=== PATIENT | female | born 1965 | race Caucasian/White ===

== ENCOUNTER → 2020-12-27 16:38 | Outpatient (CLI) | payer OTHER, SELFPAY ==
[2020-12-27 17:19] LABS: Basophils # 0.1 K/mm3 (0-0.2); Basophils % 1.7 % (0.1-2.0); Eosinophils # 0.3 K/mm3 (0.0-0.4); Eosinophils % 3.9 % (0.1-12.0); Hematocrit 43.7 % (37.0-47.0); Hemoglobin 14.4 g/dL (12.2-16.2); Lymphocytes # 2.3 K/mm3 (0.7-4.5); Lymphocytes % 36.2 % (10-50); Mean Corpuscular HGB Conc 32.9 g/dL (31.8-35.4); Mean Corpuscular Hemoglobin 28.2 pg (27.0-31.2); Mean Corpuscular Volume 85.7 fl (81-99); Mean Platelet Volume 7.8 fl (7.4-10.4); Monocytes # 0.4 K/mm3 (0.1-1.0); Monocytes % 6.6 % (1.7-9.3); Neutrophils # 3.3 K/mm3 (1.8-7.8); Neutrophils % 51.6 % (37.0-80.0); Platelet Count 409 K/mm3 (142-424); Red Blood Count 5.11 M/mm3 (4.20-5.40); Red Cell Distribution Width 13.8 % (11.5-17.5); White Blood Count 6.4 K/mm3 (4.8-10.8)
[2020-12-27 17:57] LABS: Alanine Aminotransferase 28 U/L (12-78); Albumin Level 4.2 g/dl (3.5-5.0); Albumin/Globulin Ratio 1.5 (1.1-1.8); Alkaline Phosphatase 63 U/L (38-126); Anion Gap 11.1 mEq/L (5-15); Aspartate Amino Transferase 24 U/L (14-36); Bilirubin,Total 0.2 mg/dl (0.2-1.3); Blood Urea Nitrogen 14 mg/dl (7-17); Carbon Dioxide 29 mmol/L (22.0-30.0); Chloride 105 mmol/L (98-107); Chol/HDL Ratio 5.7 (1-3.5); Cholesterol 224 mg/dl (140-200); Estimated Glomerular Filt Rate 87 ml/min (>60); GFR (African American) 105 ML/MIN (>60); Globulin 2.8 g/dL (1.3-3.2); Glucose 101 mg/dl (74-100); HDL Cholesterol 39 mg/dl (40-60); Potassium 4.1 mmoL/L (3.5-5.1); Sodium 141 mmol/L (136-145); Triglycerides 219 mg/dl (30-150); VLDL Cholesterol 44 mg/dL (0-40)
[2020-12-27 18:08] LABS: Direct LDL Cholesterol 156.86 mg/dL (100-129)
[2020-12-27 18:13] LABS: 25-OH Vitamin D, Total 31.4 ng/mL (30-100)
[2020-12-27 18:14] LABS: T4 (Thyroxine) 8.6 ug/dl (5.53-11.0)
[2020-12-27 18:27] LABS: Hemoglobin A1C 6.1 % (4.0-6.0)
[2020-12-27 18:28] LABS: Thyroid Stimulating Hormone 1.12 uIU/mL (0.465-4.68)
== END ==
PROVIDERS: Visit Provider Nurse Practitioner Family
DX: R53.83 Other fatigue (principal); I10 Essential (primary) hypertension; E66.3 Overweight; Z68.31 Body mass index [BMI] 31.0-31.9, adult; R73.03 Prediabetes
CPT/HCPCS: 36415; 80053; 80061; 82306; 83036; 84436; 84443; 85025

== ENCOUNTER 2021-01-15 23:44 | Emergency (ER) | payer OTHER, SELFPAY ==
--- NOTE | 2021-01-15 00:01 | CT_ITS ---
PROCEDURE INFORMATION: Exam: CT Abdomen And Pelvis With Contrast Exam date and time: 01/15/2021 12:01 AM Age: 55 years old Clinical indication: Abdominal pain; Prior surgery TECHNIQUE: Imaging protocol: Computed tomography of the abdomen and pelvis with contrast. Radiation optimization: All CT scans at this facility use at least one of these dose optimization techniques: automated exposure control; mA and/or kV adjustment per patient size (includes targeted exams where dose is matched to clinical indication); or iterative reconstruction. Contrast material: ISOVUE; Contrast volume: 75 ml; Contrast route: IV; COMPARISON: No relevant prior studies available. FINDINGS: Lungs: The lung bases are clear. Liver: 2.6 x 2.3 cm hypodense mass in the left lobe of the liver likely represents a cyst. Gallbladder and bile ducts: The gallbladder has been removed. Pancreas: Normal. No ductal dilation. Spleen: Normal. No splenomegaly. Adrenal glands: Normal. No mass. Kidneys and ureters: Normal. No hydronephrosis. Stomach and bowel: Unremarkable. No obstruction. No mucosal thickening. Appendix: No evidence of appendicitis. Intraperitoneal space: Mesenteric fat containing anterior abdominal wall defect measures approximately 6.5 x 4.0 cm. Vasculature: Abdominal aorta and iliac arteries contain scattered calcified plaque. No abdominal aortic aneurysm. Lymph nodes: Unremarkable. No enlarged lymph nodes. Urinary bladder: Unremarkable as visualized. Reproductive: Fibroid uterus. Bones/joints: [id number] multilevel degenerative changes of the spine most pronounced at L2-L3 and L4-L5. L4-L5 vertebral bodies are fused. Soft tissues: Unremarkable. IMPRESSION: 1. 6.5 x 4.0 cm anterior abdominal wall defect with mesenteric fat herniating through it. 2. Status post cholecystectomy. 3. Degenerative changes of the lumbar spine. 4. Fibroid uterus.
[2021-01-15 23:45] VITALS: BP 188/101; PULSE 69; RESP 16; TEMP 36.4; O2SAT 98; BMI 31.3
[2021-01-16 00:01] VITALS: BP 142/80; PULSE 82; O2SAT 96
[2021-01-16 00:27] LABS: Basophils # 0.1 K/mm3 (0-0.2); Basophils % 0.8 % (0.1-2.0); Eosinophils # 0.3 K/mm3 (0.0-0.4); Eosinophils % 3.8 % (0.1-12.0); Hematocrit 42.5 % (37.0-47.0); Hemoglobin 14.2 g/dL (12.2-16.2); Lymphocytes # 2.8 K/mm3 (0.7-4.5); Mean Corpuscular HGB Conc 33.4 g/dL (31.8-35.4); Mean Platelet Volume 7.4 fl (7.4-10.4); Monocytes # 0.5 K/mm3 (0.1-1.0); Monocytes % 7.1 % (1.7-9.3); Neutrophils # 3.5 K/mm3 (1.8-7.8); Neutrophils % 49.4 % (37.0-80.0); Platelet Count 367 K/mm3 (142-424); Red Blood Count 5.06 M/mm3 (4.20-5.40); White Blood Count 7.1 K/mm3 (4.8-10.8)
--- NOTE | 2021-01-16 00:29 | HMH.EDGENADL ---
ED Disposition Clinical Impression: Ventral hernia without obstruction or gangrene Disposition: Home, Self-Care Condition on Discharge: Fair Instructions: DI for Ventral Hernia, Ventral Hernia Additional Instructions: You have been evaluated for abdominal pain. Diagnosed with a ventral hernia. The hernia is quite large at 6 x 4 cm. It is very important that you follow-up with a general surgeon for elective repair. Hernias can become dangerous or even deadly if the bowels herniating through the defect and are unable to be reduced. Please call Dr. Andrew or Mau for next available appointment and follow-up. Return to the emergency department at once if you develop any new or worsening abdominal pain, nausea, vomiting, changes in bowel habits. Referrals: Barrington Elliott APRN [Primary Care Provider] - Trevor Andrew MD [Staff Physician] - Yobani León MD [Staff Physician] - Time of Disposition: 03:41 - Critical Care Critical Care Time: No Attestation: On 01/15/21, the high probability of a clinically significant, sudden or life threatening deterioration of the following system(s) required my full and direct attention, intervention and personal management. The time I documented below is in addition to time spent performing reported procedures but includes the following listed in this critical care notation. Medical Decision Making - Medical Records Medical records reviewed: Yes: I reviewed the patient's medical records. - Terry Inquiry Pt receiving controlled substance: No Vital Signs: 01/15/21 23:45 01/16/21 00:01 01/16/21 00:31 Temperature 97.5 F L Temperature Source Oral Pulse Rate 82 75 Pulse Rate [Left] 69 Respiratory Rate 16 Blood Pressure 142/80 H 138/99 H Blood Pressure [Right Arm] 188/101 H Blood Pressure Mean [Right Arm] 130 02 Sat by Pulse Oximetry 98 96 92 L Oxygen Delivery Method Room Air Room Air Room Air 01/16/21 01:01 01/16/21 01:31 01/16/21 02:01 Temperature Temperature Source Pulse Rate 70 69 72 Pulse Rate [Left] Respiratory Rate Blood Pressure 138/74 131/73 110/60 Blood Pressure [Right Arm] Blood Pressure Mean [Right Arm] 02 Sat by Pulse Oximetry 98 96 93 L Oxygen Delivery Method Room Air Room Air Room Air - Lab Data Lab Results 01/16/21 00:13: WBC 7.1, RBC 5.06, Hgb 14.2, Hct 42.5, MCV 84.0, MCH 28.0, MCHC 33.4, RDW 14.0, Plt Count 367, MPV 7.4, Neut % (Auto) 49.4, Lymph % (Auto) 39.0, O'Brien % (Auto) 7.1, Eos % (Auto) 3.8, Baso % (Auto) 0.8, Neut # (Auto) 3.5, Lymph # (Auto) 2.8, O'Brien # (Auto) 0.5, Eos # (Auto) 0.3, Baso # (Auto) 0.1 01/16/21 00:13: Sodium 135 L, Potassium 4.0, Chloride 102, Carbon Dioxide 30, Anion Gap 7.0, BUN 17, Creatinine 0.80, Estimated Creat Clear 121, Estimated GFR 74, Est GFR ( Amer) 90, Glucose 107 H, Calcium 9.3, Total Bilirubin 0.3, AST 32, ALT 38, Alkaline Phosphatase 70, Total Protein 7.3, Albumin 4.3, Globulin 3.0, Albumin/Globulin Ratio 1.4, Lipase 183 01/16/21 02:50: Lactate 1.0 Result diagrams: 01/16/21 00:13 01/16/21 00:13 Orders (Tests/Meds): ED MEDICATIONS Generic Name Dose Route Start Last Admin Trade Name Freq PRN Reason Stop Dose Admin Benzonatate 100 mg 01/16/21 02:30 01/16/21 03:19 Benzonatate 100mg Capsule PO 02/15/21 02:29 100 mg ONCE NAREN Administration Sodium Chloride 1,000 mls @ 999 mls/hr 01/16/21 00:15 01/16/21 03:33 Sod Chlor 0.9% 1000ml Bag IV 01/16/21 01:15 Not Given .Q1H1M NAREN Discontinued Medications Generic Name Dose Route Start Last Admin Trade Name Freq PRN Reason Stop Dose Admin Hydromorphone HCl 0.5 mg 01/16/21 00:04 01/16/21 03:33 Hydromorphone 2mg/Ml Syringe IV 01/16/21 00:05 Not Given ONCE ONE Iopamidol 75 ml 01/16/21 01:03 01/16/21 01:05 Iopamidol-370 (76%);100ml Bottle IV 01/16/21 01:04 75 ml ONCE ONE Administration Ondansetron HCl 4 mg 01/16/21 00:04 01/16/21 03:33 Ondansetron 4mg/2ml Vial IV
[2021-01-16 00:31] VITALS: BP 138/99; PULSE 75; O2SAT 92
[2021-01-16 00:37] LABS: Alanine Aminotransferase 38 U/L (12-78); Albumin Level 4.3 g/dl (3.5-5.0); Albumin/Globulin Ratio 1.4 (1.1-1.8); Alkaline Phosphatase 70 U/L (38-126); Aspartate Amino Transferase 32 U/L (14-36); Bilirubin,Total 0.3 mg/dl (0.2-1.3); Blood Urea Nitrogen 17 mg/dl (7-17); Calcium 9.3 mg/dl (8.4-10.2); Carbon Dioxide 30 mmol/L (22.0-30.0); Chloride 102 mmol/L (98-107); Creatinine Clearance Estimated 121 mL/min (50-200); Estimated Glomerular Filt Rate 74 ml/min (>60); GFR (African American) 90 ML/MIN (>60); Glucose 107 mg/dl (74-100); Lipase 183 U/L (23-300); Sodium 135 mmol/L (136-145); Total Protein,Serum 7.3 g/dl (6.3-8.2)
[2021-01-16 01:01] VITALS: BP 138/74; PULSE 70; O2SAT 98
[2021-01-16 01:31] VITALS: BP 131/73; PULSE 69; O2SAT 96
[2021-01-16 02:01] VITALS: BP 110/60; PULSE 72; O2SAT 93
[2021-01-16 03:48] VITALS: BP 110/57; PULSE 74; RESP 20; TEMP 36.8; O2SAT 99
== END 2021-01-16 03:51 | disposition home or self-care (01) ==
PROVIDERS: Emergency Provider Emergency Medicine; PCP Nurse Practitioner Family
DX: K43.9 Ventral hernia without obstruction or gangrene (principal); F41.8 Other specified anxiety disorders; E10.9 Type 1 diabetes mellitus without complications
CPT/HCPCS: 74177; 80053; 83605; 83690; 85025; 99283; J2405; Q9967

== ENCOUNTER → 2021-01-27 12:18 | Outpatient (CLI) | payer OTHER, SELFPAY ==
[2021-01-27 12:53] LABS: Basophils # 0.1 K/mm3 (0-0.2); Basophils % 0.7 % (0.1-2.0); Eosinophils # 0.3 K/mm3 (0.0-0.4); Eosinophils % 3.5 % (0.1-12.0); Hemoglobin 14.8 g/dL (12.2-16.2); Lymphocytes # 2.3 K/mm3 (0.7-4.5); Lymphocytes % 30.3 % (10-50); Mean Corpuscular HGB Conc 33.8 g/dL (31.8-35.4); Mean Corpuscular Hemoglobin 28.1 pg (27.0-31.2); Mean Corpuscular Volume 83.3 fl (81-99); Mean Platelet Volume 7.9 fl (7.4-10.4); Monocytes # 0.4 K/mm3 (0.1-1.0); Monocytes % 5.6 % (1.7-9.3); Neutrophils # 4.5 K/mm3 (1.8-7.8); Neutrophils % 59.9 % (37.0-80.0); Platelet Count 405 K/mm3 (142-424); Red Blood Count 5.28 M/mm3 (4.20-5.40); Red Cell Distribution Width 13.8 % (11.5-17.5); White Blood Count 7.6 K/mm3 (4.8-10.8)
[2021-01-27 14:34] LABS: Anion Gap 11.6 mEq/L (5-15); Blood Urea Nitrogen 15 mg/dl (7-17); Calcium 9.9 mg/dl (8.4-10.2); Carbon Dioxide 30 mmol/L (22.0-30.0); Chloride 99 mmol/L (98-107); Estimated Glomerular Filt Rate 87 ml/min (>60); GFR (African American) 105 ML/MIN (>60); Glucose 100 mg/dl (74-100); Potassium 4.6 mmoL/L (3.5-5.1); Sodium 136 mmol/L (136-145)
== END ==
PROVIDERS: Visit Provider Surgery
DX: Z01.812 Encounter for preprocedural laboratory examination (principal); Z11.52 Encounter for screening for COVID-19; K43.9 Ventral hernia without obstruction or gangrene
CPT/HCPCS: 36415; 80048; 85025; C9803; U0003; U0005

== ENCOUNTER 2021-01-30 06:00 | Day surgery (SDC) | payer OTHER, SELFPAY ==
[2021-01-25 14:12] VITALS: BMI 31.0
[2021-01-30] VITALS (10 sets, daily range): BP systolic 129–171; BP diastolic 80–94; PULSE 68–91; RESP 16–22; TEMP 36.4–43; O2SAT 95–99
--- NOTE | 2021-01-30 08:42 | HMH.ANESCL ---
[facility] Anesthesia Checklist - Patient Identification Patient Identification: Arm Band - Structural Data Admitted From: Home Planned Operative Procedure/s: Laparoscopic Ventral Hernia Repair Consent for Planned Operative Procedure(s) Verified: Yes Verified Documents: Surgical Consent, History and Physical - NPO Status Verified Time NPO: 00:00 - Additional verifications Anesthesia Reactions: No Hx Blood Transfusions: Yes Blood Transfusion Reaction: No - Airway Assessment C-Spine Mobility Assessed: Yes (mp2) TMJ Mobility Assessed: Yes Dentition: Good Dentition - Neurological Assessment Level of Consciousness: Awake, Alert - Anesthesia Plan Anesthesia Risk discussed: Yes Anesthesia Plan: Verified ASA Class: II Anesthesia Type: General [facility] History I have reviewed the patient's past medical history: Yes Medical History: Reports:: Anxiety, Depression, Diabetes Mellitus Type 2 (pt states prediabetic ), Hyperlipidemia, Hypertension Denies:: Cancer, Diabetes Mellitus Type 1, MRSA, Seizures *Have you ever received a pneumonia vaccine?: No *Have you received a flu vaccine this season?: No Other Medical History: Denies: Blood Transfusion Reaction Anesthesia experience/problems:: nac Laterality Cases: Bilateral: Other Other Surgeries: Yes: Cholecystectomy, , Other Amputation: No Fractures: No - *Social History Last grade of school completed: Advanced degree Smoking Status: Current every day smoker Tobacco Type: cigarettes # Packs/Day (cigarettes): 1 Alcohol Intake: never Alcohol Intake Frequency:: a few times a month Substance Use Type: denies use *Occupational Status:: employed Housing: house Household Members: spouse *Travel in the last 8 weeks: None - Psychiatric History Pschychiatric History:: Reports:: Anxiety, Depression Family Hx:: Diabetes
--- NOTE | 2021-01-30 09:30 | HMH.OPNOTE ---
Date of procedure: 01/30/21 Pre-op Diagnosis:: Ventral hernia Post-op Diagnosis:: Same Procedure performed:: Laparoscopic ventral hernia repair with placement of 15.2 cm circular [employer] mesh Surgeon:: Trevor Andrew MD TECHNICIAN ANATOMIC PATHOLOGY:: [place] Anesthesia: GETA Estimated blood loss (mL): 10 Clinical Note:: Patient is a 55-year-old female who was referred by the emergency department for ventral hernia. She states that she has had a hernia for the past 5 years ever since she underwent laparoscopic cholecystectomy at [facility]. She had noted some swelling. She had significant exacerbation of pain from the hernia and was seen in the emergency department on 01/16/2021. She had a CT scan performed which reveals a 6.5 x 4 cm ventral hernia at her umbilicus containing fat. Her symptoms were able to be easily controlled. Recommendations were for outpatient surgical consultation. 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 Operative findings:: She had 2 adjacent hernias at her umbilical area which seem to connect above fascial bridge. Operative note:: Consent was obtained. Patient was taken to the operating room. She was positioned in a supine position. General anesthesia was induced. Abdomen was prepped and draped in the standard surgical fashion. Through a 5 mm left subcostal incision optical trocar was inserted. Intraperitoneal contents were visualized as CO2 pneumoperitoneum was achieved. There was evidence of herniated omentum near the umbilical area. Ultimately a 5 mm trocar was inserted in the left lower abdomen and 12 mm trocar was inserted in the right subcostal area. Eventually a 5 mm trocar was inserted in the right lower abdomen to allow for placement and securing the mesh. Peritoneal attachments were incised with a's ultrasonic robotic antoinette. With traction the herniated fat was able to be delivered from the first hernia defect. Additional dissection was carried out and appreciable amount of herniated fat was delivered from the adjacent hernia. Hernia sac appeared to communicate between the 2 fascial defects. The boundaries of the fascial defects were marked on the abdomen. It was determined that this would best be served with placement of a 15.2 cm circular [employer] mesh. This was brought onto the field. It was rolled and inserted into the peritoneal cavity. Through a 1 mm incision centrally over the hernias the balloon positioning system insufflation tubing was brought through the anterior abdominal wall. Balloon was then inflated. Mesh was positioned with good overlap of the fascial edges. Mesh was secured around its periphery with the OPTi fix. The balloon positioning system balloon was then removed. A few more central OPTi fix anchors were deployed more medially to help eliminate space above the mesh. Repair appeared adequate. There was good hemostasis. Fascia at the 12 mm right upper quadrant trocar was closed with the Endo Close device. Trochars were removed and CO2 pneumoperitoneum was evacuated. Local anesthetic was infiltrated into the trocar sites. Skin incisions were closed with 4-0 Monocryl in subcuticular fashion. Steri-Strips and dressings were applied. Condition: stable Disposition: PACU Complications:: None immediately apparent
--- NOTE | 2021-01-30 09:50 | HMH.ANESI ---
[facility] Anesthesia Record Part I Intake, IV Amount: 1,200 Estimated blood loss (mL): 10 Urine output (mL): 0 Blood Pressure: 167/91 SaO2: 95 Pulse Rate: 91 Respiratory Rate: 16 Temperature: 99.4 F Patient is:: Drowsy, Stable Stable to PACU at:: 09:40
[2021-01-30 09:55] LABS: POC Glucose,Bedside 111 (70-110)
--- NOTE | 2021-01-30 14:49 | HMH.ANESII ---
[facility] Anesthesia Record Part II Discharge Time: 10:10 Destination: Surgical Day Care (OP Surgery) PACU nurse assessment reviewed?: Yes Patient Condition:: Good Anesthesia Complications:: None Swallowing reflex intact?: Yes Cyanosis?: No Blood Pressure: 151/87 Pulse Rate: 68 Temperature: 97.6 F Mental Status: Alert & Oriented Pain level:: 0 Nausea and/or vomitting:: None Intake, IV Amount: 0
[2021-11-08 10:55] LABS: POC Glucose,Bedside 98 (70-110)
== END 2021-01-30 10:42 | disposition home or self-care (01) ==
LOC: OR 06:03
PROVIDERS: PCP Nurse Practitioner Family; Visit Provider Surgery
PROC: 0WQF4ZZ Repair Abdominal Wall, Percutaneous Endoscopic Approach (ICD-10-PCS; CPT 49652; principal; 2021-01-30 08:15)
DX: K43.9 Ventral hernia without obstruction or gangrene (principal); E78.5 Hyperlipidemia, unspecified; I10 Essential (primary) hypertension; F41.9 Anxiety disorder, unspecified; F32.A Depression, unspecified; Z90.49 Acquired absence of other specified parts of digestive tract; Z72.0 Tobacco use; Z83.3 Family history of diabetes mellitus; Z79.899 Other long term (current) drug therapy; Z79.890 Hormone replacement therapy
CPT/HCPCS: 49652; 82962; 96374; C1781; J2405; J2710

== ENCOUNTER → 2021-02-22 12:31 | Outpatient (CLI) | payer OTHER, SELFPAY ==
[2021-02-22 14:24] LABS: Blood Urea Nitrogen 13 mg/dl (7-17); Estimated Glomerular Filt Rate 87 ml/min (>60); GFR (African American) 105 ML/MIN (>60)
== END ==
PROVIDERS: PCP Emergency Medicine; Visit Provider Surgery
DX: Z01.812 Encounter for preprocedural laboratory examination (principal)
CPT/HCPCS: 36415; 82565; 84520

== ENCOUNTER → 2021-02-26 07:50 | Outpatient (CLI) | payer OTHER, SELFPAY ==
--- NOTE | 2021-02-26 07:50 | CT_ITS ---
FINAL REPORT CLINICAL HISTORY: seroma vs hernia recent hernia surgery. feels like hernia back post surgery. pain COMPARISON: January 16, 2021 FINDINGS: CT OF THE ABDOMEN AND PELVIS WITH CONTRAST Axial CT images of the abdomen and pelvis were obtained after the administration of oral and iv contrast. Coronal reformatted images were also obtained and reviewed.This study was performed with techniques to keep radiation doses as low as reasonably achievable (ALARA). Individualized dose reduction techniques using automated exposure control or adjustment of mA and/or kV according to the patient's size were employed. Abdomen: There is mild atelectasis or scarring in the medial right lung base. The heart is normal in size. There is a 20 mm cyst in the left hepatic lobe stable from the prior exam. There is evidence of cholecystectomy. There is mild extrahepatic biliary ductal dilatation likely representing post cholecystectomy change. The spleen is unremarkable. No adrenal mass is present. The pancreas has an unremarkable appearance. The kidneys are normal, without evidence of mass or hydronephrosis. The aorta is normal in caliber. There is no free fluid or adenopathy. There is a lobular fluid collection in the anterior abdominal wall at the site of the previous hernia measuring 12 x 6 cm in maximal axial dimensions. This has an appearance consistent with a postoperative seroma or chronic hematoma. Pelvis: The appendix is normal. The urinary bladder is unremarkable. No inflammatory process is seen. There is no evidence of mass or adenopathy. There is no evidence of bowel obstruction. The uterus is lobular, heterogeneous and contains calcifications consistent with fibroids. IMPRESSION: Postoperative seroma or chronic hematoma at the site of the prior hernia. Fibroid uterus. Stable cyst in the left hepatic lobe of the liver. Reviewed, Interpreted and Dictated by Trevor Stephenson III, MD Transcribed by Leroy Khoury Authenticated by Trevor Stephenson III, MD on 02/26/2021 08:41:28 AM [facility]
== END ==
LOC: RAD 07:50
PROVIDERS: PCP Nurse Practitioner Family; Visit Provider Surgery
DX: K43.9 Ventral hernia without obstruction or gangrene (principal)
CPT/HCPCS: 74177; Q9967

== ENCOUNTER 2021-04-19 18:42 | Emergency (ER) | payer OTHER, SELFPAY ==
[2021-04-19 18:45] VITALS: BP 151/96; PULSE 81; RESP 18; TEMP 36.9; O2SAT 98; BMI 30.4
--- NOTE | 2021-04-19 19:09 | HMH.EDUTC ---
[facility] Disposition Clinical Impression: Bronchitis Sinusitis Qualifiers: Sinusitis location: unspecified location Chronicity: unspecified Qualified Code(s): J32.9 - Chronic sinusitis, unspecified Disposition: Home, Self-Care Condition on Discharge: Good Instructions: Sinusitis, DI for Sinusitis Additional Instructions: ? Start antibiotic today. Be sure to complete entire prescription even if feeling better ? Monitor temp. Tylenol every 4 hours as needed and / or ibuprofen every 6 hours as needed ( As long as your primary care physician has told you that it ok to take both. For fever/aches/pains ER if no less than 101 despite Tylenol or Motrin ? Humidifier/vaporizer or hot steamy shower *Tessalon Perles will not cause drowsiness but use at bedtime to help stop cough so that you may get some rest. *Start steroid today. Helps with inflammation therefore, cough and wheezing. Follow directions on the package. Reviewed side effects. Patient reports taking them before. Follow up IMMEDIATELY for new or worsening of symptoms OR no noticeable improvement over the next 48-72 hours. 911 immediately for any life threatening symptoms such as chest pain or difficulty breathing Prescriptions: Benzonatate [Benzonatate 100mg cap] 100 mg PO Q8HP PRN #15 cap PRN Reason: Cough Transmission Status: Pending to [facility] predniSONE [Deltasone 20mg tablet] 20 mg PO BID 5 Days #10 tab Transmission Status: Pending to [facility] Azithromycin [Z-Jose G 250mg Tab] 250 mg PO DIRECTED #6 tab Transmission Status: Pending to [facility] Referrals: Juan Carlos Fernandes MD [Primary Care Provider] - As needed Time of Disposition: 19:25 Medical Decision Making - Terry Inquiry Pt receiving controlled substance: No Terry was queried for this patient: No Vital Signs: 04/19/21 18:45 Temperature 98.4 F Temperature Source Oral Pulse Rate [Right Brachial] 81 Respiratory Rate 18 Blood Pressure [Right Arm] 151/96 H Blood Pressure Mean [Right Arm] 114 Blood Pressure Source [Right Arm] Automatic Cuff Blood Pressure Position [Right Arm] Sitting 02 Sat by Pulse Oximetry 98 Oxygen Delivery Method Room Air Medical Decision Narrative: Patient states that she has taken azithromycin and Prednisone in the past without complications or reactions [facility] HPI - General Stated complaint: sore throat, cough, h/a, congestion, runny nose Time Seen by Provider: 04/19/21 19:09 Mode of Arrival: Ambulatory Source of Information: Patient Limitations: No Limitations Description of Symptoms (Recalled from Triage Doc. by RN): PATIENT C/O COUGH, SORE THROAT, AND NASAL CONGESTION X 1 MONTH HEENT Symptoms (Recalled from RN notes): Yes Resp Symptoms (Recalled from RN notes): No Skin Symptoms (Recalled from RN notes): No MS Symptoms (Recalled from RN notes): No Functional Status (Recalled from RN notes): WNL - History of Present Illness Provider Complaint: Patient states that she has been having sinus issues and cough on and off for month that has continued to get worse over the last couple of weeks States that she feels like she may have sinusitis or bronchitis so she came in to get checked out - Related Data Home Medications Medication Instructions Recorded Confirmed citalopram 20 mg tablet 20 mg PO DAILY 12/27/20 03/01/21 Medroxyprogesterone Acetate 2.5 mg PO DAILY 01/25/21 03/01/21 [Provera 2.5mg tablet] Semaglutide [Ozempic] 0.5 mg SQ WEEKLY 01/25/21 03/01/21 estradioL [Estradiol] 1 mg PO DAILY 01/25/21 03/01/21 Previous Rx's Medication Instructions Recorded semaglutide 0.5 mg SQ WEEKLY #1.5 ml 02/07/21 loratadine 10 mg tablet See Rx Instructions .ROUTE 03/12/21 .COMPLEX #30 tab lisinopril 10 mg tablet See Rx Instructions .ROUTE 04/09/21 .COMPLEX #30 tablet Azithromycin [Z-Jose G 250mg Tab] 250 mg PO DIRECTED #6 tab 04/19/21 Benzonatate [Benzonatate 100mg 100 mg PO Q8HP PRN #15 c
[2021-04-19 19:22] VITALS: BP 151/96; PULSE 81; RESP 18; TEMP 36.9; O2SAT 98
== END 2021-04-19 19:33 | disposition home or self-care (01) ==
PROVIDERS: Emergency Provider Nurse Practitioner; PCP Emergency Medicine
DX: J02.9 Acute pharyngitis, unspecified; R51.9 Headache, unspecified; I10 Essential (primary) hypertension; E78.5 Hyperlipidemia, unspecified; E11.9 Type 2 diabetes mellitus without complications; F41.9 Anxiety disorder, unspecified; F17.210 Nicotine dependence, cigarettes, uncomplicated; Z79.52 Long term (current) use of systemic steroids; Z79.890 Hormone replacement therapy; Z79.899 Other long term (current) drug therapy; Z83.3 Family history of diabetes mellitus
CPT/HCPCS: 99213; G0463

== ENCOUNTER → 2021-12-01 08:06 | Outpatient (CLI) | payer OTHER, SELFPAY ==
[2021-12-01 09:10] LABS: Basophils # 0.1 K/mm3 (0-0.2); Basophils % 1.6 % (0.1-2.0); Eosinophils # 0.1 K/mm3 (0.0-0.4); Eosinophils % 3.7 % (0.1-12.0); Hematocrit 44.9 % (37.0-47.0); Hemoglobin 14.4 g/dL (12.2-16.2); Lymphocytes # 1.3 K/mm3 (0.7-4.5); Lymphocytes % 34.2 % (10-50); Mean Corpuscular HGB Conc 32.1 g/dL (31.8-35.4); Mean Corpuscular Hemoglobin 27.9 pg (27.0-31.2); Mean Corpuscular Volume 86.7 fl (81-99); Mean Platelet Volume 7.1 fl (7.4-10.4); Monocytes # 0.3 K/mm3 (0.1-1.0); Monocytes % 6.7 % (1.7-9.3); Neutrophils # 2.1 K/mm3 (1.8-7.8); Neutrophils % 53.9 % (37.0-80.0); Platelet Count 354 K/mm3 (142-424); Red Blood Count 5.17 M/mm3 (4.20-5.40); White Blood Count 3.8 K/mm3 (4.8-10.8)
[2021-12-01 09:17] LABS: Hemoglobin A1C 5.8 % (4.0-6.0)
[2021-12-01 10:06] LABS: Alanine Aminotransferase 24 U/L (12-78); Albumin Level 3.9 g/dl (3.5-5.0); Albumin/Globulin Ratio 1.4 (1.1-1.8); Alkaline Phosphatase 87 U/L (38-126); Anion Gap 13.2 mEq/L (5-15); Aspartate Amino Transferase 23 U/L (14-36); Bilirubin,Total 0.4 mg/dl (0.2-1.3); Blood Urea Nitrogen 15 mg/dl (7-17); Calcium 8.8 mg/dl (8.4-10.2); Carbon Dioxide 30 mmol/L (22.0-30.0); Chloride 101 mmol/L (98-107); Chol/HDL Ratio 5.1 (1-3.5); Cholesterol 241 mg/dl (140-200); Estimated Glomerular Filt Rate 87 ml/min (>60); GFR (African American) 105 ML/MIN (>60); Globulin 2.8 g/dL (1.3-3.2); Glucose 105 mg/dl (74-100); HDL Cholesterol 47 mg/dl (40-60); Potassium 5.2 mmoL/L (3.5-5.1); Sodium 139 mmol/L (136-145); Total Protein,Serum 6.7 g/dl (6.3-8.2); Triglycerides 108 mg/dl (30-150); VLDL Cholesterol 22 mg/dL (0-40)
[2021-12-01 10:17] LABS: Direct LDL Cholesterol 150.65 mg/dL (100-129)
[2021-12-01 10:36] LABS: Thyroid Stimulating Hormone 1.04 uIU/mL (0.465-4.68)
== END ==
LOC: LAB 08:07
PROVIDERS: PCP Nurse Practitioner Family; Visit Provider Nurse Practitioner Family
DX: R73.03 Prediabetes (principal); I10 Essential (primary) hypertension; R53.83 Other fatigue; E55.9 Vitamin D deficiency, unspecified
CPT/HCPCS: 36415; 80053; 80061; 82306; 83036; 84443; 85025

== ENCOUNTER 2023-06-25 14:48 | Emergency (ER) | payer BC, SELFPAY ==
[2023-06-25 15:30] VITALS: BP 171/95; PULSE 88; RESP 19; TEMP 37; O2SAT 97; BMI 31.7
--- NOTE | 2023-06-25 15:55 | EXP.UTC ---
Discharge Plan Disposition Patient Disposition: Home, Self-Care Condition: Good Prescriptions Prescriptions: New ondansetron 4 mg tablet,disintegrating 4 mg PO Q8H PRN (Reason: nausea and vomiting) Qty: 10 0RF No Action citalopram 20 mg tablet 20 mg PO DAILY losartan 25 mg tablet 25 mg PO DAILY Referrals Follow up/Referrals: Peter Wang DO [Primary Care Provider] - See instructions Activity Restrictions/Add. Instructions Additional Instructions/Restrictions: Drink extra fluids with and between meals. If you have difficulty drinking, try very small amounts of water or suck on ice chips. ? Avoid fruit juices, as these do not replace minerals and can actually increase diarrhea. ? Children and adults can use sports drinks to replenish electrolytes. Younger children and infants should use products formulated for children, like oral rehydration solutions. ? Eat food in small amounts and let your stomach recover. ? Get lots of rest. You may feel tired or weak. ? No greasy or fried foods for the next 24-48 hours BRAT diet Bananas Rice Apples and [place] ? Make sure to drink plenty of liquids ? Return if needed ? Straight to ER if any life threatening symptoms ? Zofran as prescribed ? You was given an outpatient order for diarrhea panel, please collect specimen and bring back to outpatient lab then call back to the [facility] or follow up with family doctor for results ? Follow up with family doctor in the next 48-72 hours if no improvement or any worsening of symptoms Clinical Impressions Clinical Impression: Nausea, vomiting and diarrhea Instructions Patient Instructions: Nausea and Vomiting-Adult, Diarrhea Discharge ED Provider: Valerie Cerda [facility] General Stated complaint: nausea, vomitting Mode of Arrival: Ambulatory Source of Information: Patient Limitations: No Limitations Time Seen by Provider: 06/25/23 15:56 Description of Symptoms (Recalled from Triage Doc. 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 so now she thinks she may have it too States that she has had Diarrhea since the weekend and having some N/V states that she came in to get something for the nausea to help Related Data Home Medications Medication Instructions Recorded Confirmed citalopram 20 mg tablet 20 mg PO DAILY 06/25/23 06/25/23 losartan 25 mg tablet 25 mg PO DAILY 06/25/23 06/25/23 Previous Rx's Medication Instructions Recorded ondansetron 4 mg disintegrating 4 mg PO Q8H PRN nausea and 06/25/23 tablet vomiting #10 tabs Allergies Allergy/AdvReac Type Severity Reaction Status Date / Time No Known Allergies Allergy Verified 09/11/22 14:41 Worker's Comp Is this a Worker's Comp case?: No [facility] Disclaimer: The information contained in this section may have been updated after the patient was seen, as this information can be updated by other users. Medical History (Updated 06/25/23 @ 16:04 by Valerie Cerda APRN) Anxiety Hypertension Surgical History (Updated 06/25/23 @ 15:40 by Meka Lake RN) History of tubal ligation History of section History of cholecystectomy Social History Smoking Status: Current every day smoker tobacco type: cigarettes packs per day: 1 alcohol intake: never substance use type: denies use current occupational status: employed Travel in the last 8 weeks: None household members: spouse housing: house current occupation: [employer] ROS Obtained: Yes Systems reviewed as appropriate & no additional complaints except as documented Constitutional Constitutional: Reports system reviewed and no additional complaints, except as documented, Reports as per HPI, Denies body ache, Denies chills and Denies headache(s) ENT Ears, Nose, Mouth, and Throat: Reports system reviewed and no additional complaints, except as documented, Reports as per HPI, Denies otalgia and Denies headache(s) Cardiovascular Cardiovascular: Reports system reviewed and no additional complaints, except as documented and Reports as per HPI Respiratory Respiratory: Reports system reviewed and no additional complaints, except as documented and Reports as per HPI Gastrointestinal Gastrointestingal: Reports system reviewed and no additional complaints, except as documented, as per HPI, diarrhea, nausea and vomiting; Denies abdominal pain Neurologic Neurologic: Denies headache(s) Physical Exam General General appearance: alert and in no apparent distress ENT ENT exam: Present mucous membranes moist Respiratory Respiratory exam: Present normal lung sounds bilaterally; Absent respiratory distress or wheezes Cardiovascular Cardiovascular exam: Present regular rate, normal rhythm and normal heart sounds Abdominal Exam Abdominal exam: Present soft and normal bowel sounds; Absent distention or tenderness Neurological Exam Neurological exam: Present alert, oriented X3 and normal gait Medical Decision Making Terry Inquiry Pt receiving controlled substance: No Terry was queried for this patient: No Vital Signs: 06/25/23 15:30 Temperature 98.6 F Temperature Source Oral Pulse Rate [Left Brachial] 88 Respiratory Rate 19 Blood Pressure [Left Arm] 171/95 H Blood Pressure Mean [Left Arm] 120 Blood Pressure Source [Left Arm] Automatic Cuff Blood Pressure Position [Left Arm] Sitting 02 Sat by Pulse Oximetry 97 Oxygen Delivery Method Room Air
[2023-06-25 16:06] VITALS: BP 171/95; PULSE 88; RESP 19; TEMP 37; O2SAT 97
== END 2023-06-25 16:13 | disposition home or self-care (01) ==
PROVIDERS: Emergency Provider Nurse Practitioner; PCP Internal Medicine
DX: R11.2 Nausea with vomiting, unspecified (principal); R19.7 Diarrhea, unspecified; F17.210 Nicotine dependence, cigarettes, uncomplicated; I10 Essential (primary) hypertension
CPT/HCPCS: 99212; 99214; G0463

== ENCOUNTER 2023-09-03 08:56 | Emergency (ER) | payer BC, SELFPAY ==
[2023-09-03 09:05] VITALS: BP 145/75; PULSE 72; RESP 18; TEMP 36.4; O2SAT 96; BMI 33.1
--- NOTE | 2023-09-03 09:26 | ED_ITS ---
Discharge Plan Disposition Patient Disposition: Home, Self-Care Condition: Good Prescriptions Prescriptions: New methocarbamol 500 mg tablet 500 mg PO TID PRN (Reason: muscle spasm) Qty: 15 0RF No Action citalopram 20 mg tablet 20 mg PO DAILY Rx Instructions: TAKE ONE TABLET BY MOUTH ONCE A DAY losartan 25 mg tablet 25 mg PO DAILY Referrals Follow up/Referrals: Peter Wang DO [Primary Care Provider] - See instructions Activity Restrictions/Add. Instructions Additional Instructions/Restrictions: *Over the counter Ibuprofen pablito 6 hours with meal as needed for pain/inflammation *Not additional anti-inflammatory like motrin, aleve, advil with the above amount of ibuprofen. You can still take Tylenol every 4 hours as needed if you need something else for pain *Ice 20 minutes every 2 hours for the first 48 hours after the initial injury followed by moist heat every 20 minutes 3-4 times a day to affected area *Muscle relaxer every 8 hours as needed for muscle spasms but remember, it WILL cause drowsiness You cannot take it and drive, operate machinery or care for small children. *Keep this area active, no movement leads to more stiffness, However take it easy and avoid heavy lifting pushing or pulling *Follow up with you family doctor if no improvement for further treatment Clinical Impressions Clinical Impression: Muscle spasm Instructions Patient Instructions: DI for Muscle Spasm, Methocarbamol Print Language Print Language: Kittitian Discharge ED Provider: Valerie Cerda [facility] General Stated complaint: neck pain Mode of Arrival: Ambulatory Source of Information: Patient Limitations: No Limitations Time Seen by Provider: 09/03/23 09:26 Description of Symptoms (Recalled from Triage Doc. by RN): PATIENT C/O NECK PAIN THAT STARTED 2.5 WEEKS AGO AFTER SHE SLEPT WRONG. SHE STATES THE PAIN IS WORSE WHEN SHE TURNS HER HEAD LEFT AND LOOK UP HEENT Symptoms (Recalled from RN notes): No Resp Symptoms (Recalled from RN notes): No Skin Symptoms (Recalled from RN notes): No MS Symptoms (Recalled from RN notes): Yes Functional Status (Recalled from RN notes): WNL History of Present Illness Provider Complaint: Patient states that she has been having muscle spasms and tightness on the left side of her neck/shoulder area for about 2 weeks after she woke up thinking she may have slept wrong States today it was still bothering her and hurts when she turns her head and looks up Denies known injury Related Data Home Medications ?Medication ?Instructions ?Recorded ?Confirmed losartan 25 mg tablet 25 mg PO DAILY 06/25/23 09/03/23 citalopram 20 mg tablet 20 mg PO DAILY 09/03/23 09/03/23 Previous Rx's ?Medication ?Instructions ?Recorded methocarbamol 500 mg tablet 500 mg PO TID PRN muscle spasm #15 09/03/23 tabs Allergies Allergy/AdvReac Type Severity Reaction Status Date / Time No Known Allergies Allergy Verified 09/11/22 14:41 Worker's Comp Is this a Worker's Comp case?: No [facility] Disclaimer: The information contained in this section may have been updated after the patient was seen, as this information can be updated by other users. Medical History (Updated 09/03/23 @ 09:38 by Valerie Cerda APRN) Anxiety Hypertension Surgical History (Updated 06/25/23 @ 15:40 by Meka Lake RN) History of tubal ligation History of section History of cholecystectomy Social History Smoking Status: Current every day smoker tobacco type: cigarettes packs per day: 1 alcohol intake: never substance use type: denies use current occupational status: employed Travel in the last 8 weeks: None household members: spouse housing: house current occupation: [employer] ROS Obtained: Yes All systems reviewed & no additional complaints except as documented and Yes Systems reviewed as appropriate & no additional complaints except as documented Constitutional Constitutional: Reports system reviewed and no additional complaints, except as documented, Reports as per HPI, Denies body ache, Denies chills, Denies fever(s) and Denies headache(s) ENT Ears, Nose, Mouth, and Throat: Reports system reviewed and no additional complaints, except as documented, Reports as per HPI and Denies headache(s) Cardiovascular Cardiovascular: Reports system reviewed and no additional complaints, except as documented and Reports as per HPI Respiratory Respiratory: Reports system reviewed and no additional complaints, except as documented and Reports as per HPI Gastrointestinal Gastrointestingal: Reports system reviewed and no additional complaints, except as documented and as per HPI Musculoskeletal Musculoskeletal: Reports system reviewed and no additional complaints, except as documented, Reports as per HPI and Reports other (muscle spasms left side of neck after sleeping wrong) Integumentary/Breasts Skin/Breast: Reports system reviewed and no additional complaints, except as documented and Reports as per HPI Neurologic Neurologic: Denies headache(s) Physical Exam General General appearance: alert and in no apparent distress ENT ENT exam: Present mucous membranes moist Neck Neck exam: Present normal inspection; Absent full ROM or trachea midline Chest Chest inspection: Present normal inspection and symmetric chest wall rise Respiratory Respiratory exam: Present normal lung sounds bilaterally; Absent respiratory distress or wheezes Cardiovascular Cardiovascular exam: Present regular rate, normal rhythm and normal heart sounds Back Exam Back exam: Present tenderness and muscle spasm; Absent CVA tenderness (R), CVA tenderness (L) or vertebral tenderness Back 1 view image: 2 1. reports tight feeling, tenderness noted with palpation Neurological Exam Neurological exam: Present alert, oriented X3 and normal gait Medical Decision Making Terry Inquiry Pt receiving controlled substance: No Terry was queried for this patient: No Vital Signs: 09/03/23 09:05 Temperature 97.5 F L Temperature Source Oral Pulse Rate [Left Brachial] 72 Respiratory Rate 18 Blood Pressure [Left Arm] 145/75 H Blood Pressure Mean [Left Arm] 98 Blood Pressure Source [Left Arm] Automatic Cuff Blood Pressure Position [Left Arm] Sitting 02 Sat by Pulse Oximetry 96 Oxygen Delivery Method Room Air
[2023-09-03 09:45] VITALS: BP 145/75; PULSE 72; RESP 18; TEMP 36.4; O2SAT 96
== END 2023-09-03 09:49 | disposition home or self-care (01) ==
PROVIDERS: Emergency Provider Nurse Practitioner; PCP Internal Medicine
DX: M54.2 Cervicalgia (principal); M62.838 Other muscle spasm
CPT/HCPCS: 99212; 99214; G0463

== ENCOUNTER 2023-09-07 16:44 | Emergency (ER) | payer BC, SELFPAY ==
[2023-09-07 16:55] VITALS: BP 172/94; PULSE 78; RESP 16; TEMP 36.8; O2SAT 96; BMI 32.5
--- NOTE | 2023-09-07 17:04 | ED_ITS ---
Discharge Plan Disposition Patient Disposition: Home, Self-Care Condition: Good Prescriptions Prescriptions: New cyclobenzaprine 10 mg Tablet 10 mg PO BID PRN (Reason: Muscle Spasm) Qty: 20 0RF methylprednisolone 4 mg Tablets,Dose Pack 4 mg PO DIRECTED 6 Days Qty: 21 0RF Rx Instructions: Take 1 pack as directed for 6 days No Action citalopram 20 mg tablet 20 mg PO DAILY Rx Instructions: TAKE ONE TABLET BY MOUTH ONCE A DAY methocarbamol 500 mg tablet 500 mg PO TID PRN (Reason: muscle spasm) Qty: 15 0RF losartan 25 mg tablet 25 mg PO DAILY Referrals Follow up/Referrals: Peter Wang DO [Primary Care Provider] - See instructions Clinical Impressions Clinical Impression: Torticollis Instructions Patient Instructions: DI for Torticollis, Torticollis, Dexamethasone Injection, Ketorolac Injection, Cyclobenzaprine Print Language Print Language: Irish Discharge ED Provider: Kali Mon [facility] [place] General Stated complaint: neck pain Mode of Arrival: Ambulatory Source of Information: Patient Limitations: No Limitations Time Seen by Provider: 09/07/23 17:04 Description of Symptoms (Recalled from Triage Doc. by RN): pt c/o neck pain that is worse on the L side and radiates to her L shoulder. pt states the pain is worse when she turns her head to the L or looks up. pt was seen here a few weeks ago with the same complaint. pt reports she woke up one day and had the pain. pt denies heavy lifting or injury. pt states the pain is dull and 6/10. HEENT Symptoms (Recalled from RN notes): No Resp Symptoms (Recalled from RN notes): No Skin Symptoms (Recalled from RN notes): No MS Symptoms (Recalled from RN notes): Yes Functional Status (Recalled from RN notes): wnl History of Present Illness Provider Complaint: She states that for the past 2 weeks she has had left sided neck muscle pain and pain when she turns her head to the left. She was here 2 weeks ago for this same problem. She was prescribed robaxin then. She states it did help some but her symptoms have persisted. She denies any falls or trauma. Related Data Home Medications ?Medication ?Instructions ?Recorded ?Confirmed losartan 25 mg tablet 25 mg PO DAILY 06/25/23 09/03/23 citalopram 20 mg tablet 20 mg PO DAILY 09/03/23 09/03/23 Previous Rx's ?Medication ?Instructions ?Recorded methocarbamol 500 mg tablet 500 mg PO TID PRN muscle spasm #15 09/03/23 tabs cyclobenzaprine 10 mg tablet 10 mg PO BID PRN Muscle Spasm #20 09/07/23 tabs methylprednisolone 4 mg tablets in 4 mg PO DIRECTED 6 days #21 tabs 09/07/23 a dose pack Allergies Allergy/AdvReac Type Severity Reaction Status Date / Time No Known Allergies Allergy Verified 09/07/23 16:58 Worker's Comp Is this a Worker's Comp case?: No [facility] Disclaimer: The information contained in this section may have been updated after the patient was seen, as this information can be updated by other users. Medical History (Updated 09/07/23 @ 17:39 by Kali Mon APRN) Anxiety Hypertension Surgical History (Updated 06/25/23 @ 15:40 by Meka Lake RN) History of tubal ligation History of section History of cholecystectomy Social History Smoking Status: Current every day smoker tobacco type: cigarettes packs per day: 1 alcohol intake: never substance use type: denies use current occupational status: employed Travel in the last 8 weeks: None household members: spouse housing: house current occupation: [employer] ROS Obtained: Yes All systems reviewed & no additional complaints except as documented Constitutional Constitutional: Denies chills and Denies fever(s) Eyes Eyes: Denies eye discharge ENT Ears, Nose, Mouth, and Throat: Denies dizziness, Denies otalgia, Reports neck pain and Denies sore throat Cardiovascular Cardiovascular: Denies chest pain Respiratory Respiratory: Denies shortness of breath, Denies chest congestion, Denies cough, Denies stridor and Denies wheezing Gastrointestinal Gastrointestingal: Denies nausea or vomiting Musculoskeletal Musculoskeletal: Reports as per HPI, Denies back pain and Reports neck pain Integumentary/Breasts Skin/Breast: Denies rash Neurologic Neurologic: Denies dizziness and Denies paresthesias Allergic/Immunologic Allergic/Immunologic: Denies wheezing Physical Exam General General appearance: alert and in no apparent distress Head Head exam: atraumatic, normocephalic and normal inspection Eye Eye exam: Present normal appearance, PERRL and EOMI ENT ENT exam: Present normal exam, normal oropharynx, mucous membranes moist, TM's normal bilaterally and normal external ear exam Neck Neck exam: Present normal inspection, full ROM and trachea midline; Absent meningismus or lymphadenopathy Chest Chest inspection: Present normal inspection and symmetric chest wall rise; Absent tenderness Respiratory Respiratory exam: Present normal lung sounds bilaterally; Absent respiratory distress Cardiovascular Cardiovascular exam: Present regular rate and normal rhythm; Absent JVD Abdominal Exam Abdominal exam: Present soft and normal bowel sounds; Absent distention, tenderness or guarding Extremities Exam Extremities exam: Present normal inspection, full ROM and normal capillary refill; Absent calf tenderness Back Exam Back exam: Present normal inspection; Absent tenderness Neurological Exam Neurological exam: Present alert, oriented X3, CN II-XII intact, normal gait and reflexes normal; Absent motor sensory deficit Expanded Neurological Exam Speech: Present fluid speech Cranial nerves: Normal: EOM function (II, III, IV, ), facial sensation (V), facial palsy (VII), gag reflex (IX), spinal accessory function (XI) and tongue deviation (XII) Cerebellar function: normal gait Motor strength - LUE: 5/5 Motor strength - RUE: 5/5 Motor strength - LLE: 5/5 Motor strength - RLE: 5/5 Sensory exam upper extremity: Normal: light touch and 2 point discrimination Sensory exam lower extremity: Normal: light touch and 2 point discrimination DTR: 2+: biceps (L), biceps (R), patellar (L), patellar (R), Achilles tendon (L) and Achilles tendon (R) Spinal cord function: Absent saddle anesthesia Psychiatric Psychiatric exam: Present normal affect and normal mood Skin Skin exam: Present warm, dry, intact and normal color Lymphatic Lymphatic Findings: no adenopathy Medical Decision Making Medical Records Medical records reviewed: No I reviewed the patient's medical records. Terry Inquiry Pt receiving controlled substance: No Vital Signs: 09/07/23 16:55 Temperature 98.2 F Temperature Source Oral Pulse Rate [Left] 78 Respiratory Rate 16 Blood Pressure [Right Arm] 172/94 H Blood Pressure Mean [Right Arm] 120 Blood Pressure Source [Right Arm] Automatic Cuff Blood Pressure Position [Right Arm] Sitting 02 Sat by Pulse Oximetry 96 Oxygen Delivery Method Room Air
[2023-09-07] MEDS: DEXAMETHASONE 4MG/ML 1ML VIAL 8 MG IM (17:27)
[2023-09-07] MEDS: KETOROLAC 60MG/2ML VIAL 60 MG IM (17:27)
[2023-09-07 17:38] VITALS: BP 172/94; PULSE 78; RESP 16; TEMP 36.8
== END 2023-09-07 17:40 | disposition home or self-care (01) ==
PROVIDERS: Emergency Provider Nurse Practitioner Family; PCP Internal Medicine
DX: M43.6 Torticollis (principal); M54.2 Cervicalgia
CPT/HCPCS: 96372; 99212; 99214; G0463; J1100; J1885

== ENCOUNTER 2023-12-16 09:39 | Outpatient (CLI) | payer BC, SELFPAY ==
--- NOTE | 2023-12-16 10:01 | XR_ITS ---
FINAL REPORT TECHNIQUE: 3 views CLINICAL HISTORY: .neck pain FINDINGS: CERVICAL SPINE: AP, lateral and odontoid views of the cervical spine were obtained. There is no prior exam for comparison. There is no acute fracture or malalignment. Vertebral body height is preserved. There is moderate degenerative change with multilevel osteophytes. There is mild kyphosis centered at the C5 level. There are probable carotid artery calcifications bilaterally. IMPRESSION: Moderate cervical degenerative change with multilevel osteophytes and mild kyphosis. Probable bilateral coronary artery calcifications. Authenticated and [facility]
== END 2023-12-16 23:59 | disposition home or self-care (01) ==
LOC: RAD 09:40
PROVIDERS: PCP Nurse Practitioner Family; Visit Provider Family Medicine
DX: M54.2 Cervicalgia (principal)
CPT/HCPCS: 72040

== ENCOUNTER 2023-12-16 16:00 | Outpatient (RCR) | payer BC, SELFPAY ==
--- NOTE | 2023-11-04 18:25 | HMH.PTOPEV ---
PT Outpatient Evaluation Rehab PT Outpatient Evaluation Start: 11/04/23 18:08 Freq: Status: Active Protocol: Document 11/04/23 18:08 JOSIE (Rec: 11/04/23 18:25 JOSIE [id number]) E-signed By Austen Lyons, PT Outpatient Therapy Subjective History Subjective History Patient is a 58 year old female presenting to outpatient PT with reports of cervical spine/L UT pain of insidious onset starting approx 2 months ago. No recent imaging to report. Other comorbidities include hx of HTN, hernia and L RCR. New diagnosis of cancer in past 12 No months? Chief Complaint Pain,Stiff Symptom Type Sharp,Tingling Symptoms Aggravated By Physical Activity,Lifting Prior Functional Limitations None Current Functional Limitations Reaching,Lifting,Housework, Dressing,Desk Work/Reading, Driving,Recreation Activity Symptom Description Constant but Variable Level of pain today (0-10) 3 Pain scale - at its best (0-10) 2 Pain scale - at its worst (0-10) 6 Cervical Eval Palpation Cervical Muscles L Upper Trapezius Posture Head/C-Spine Posture Sitting Position Neutral Position Head/C-Spine Posture Standing Position Neutral Position Flexibility Deficits Upper Trapezius Muscle Length (L) Moderate Tightness Levaetor Scapulae Muscle Length (L) Moderate Tightness Scalene Group Muscle Length (L) Moderate Tightness Pectoralis Minor Muscle Length (L) Moderate Tightness Passive Joint Mobility Cervical PIVM Dec: R C4/5 L C4/5 R C5/6 L C5/6 R C6/7 L C6/7 R C7/T1 L C7/T1 WNL: R OA L OA R AA L AA R C2/3 L C2/3 R C3/4 L C3/4 AROM Cervical Spine Extension Active Range of 38 Motion (degrees) Cervical Spine Flexion Active Range of 44 Motion (degrees) Cervical Spine Right Lateral Flexion 23 Active Range of Motion (degrees) Cervical Spine Left Lateral Flexion 41 Active Range of Motion (degrees) Cervical Spine Right Rotation Active WNL Range of Motion (degrees) Cervical Spine Left Rotation Active WNL Range of Motion (degrees) MMT Bilateral Deltoid (C5) 5 Normal Wrist Extension Strength Grade 5 Normal Triceps Brachii Strength Grade 5 Normal Wrist Flexion Strength Grade 5 Normal Extensor Pollicis Longus Strength Grade 5 Normal Finger Abduction Strength Grade 5 Normal Special Test C-Spine Foraminal Compression (Spurling) Negative Left Test C-Spine Foraminal Distraction Test Positive Neck Disability Index Neck Disability Index Section 1: Pain Intensity The pain is moderate at the moment Section 2: Personal Care (washing, I can look after myself dressing, etc.) normally but it causes extra pain Section 3: Lifting I can lift heavy weights but it gives extra pain Section 4: Reading I can't read as much as I want because of moderate pain in my neck Section 5: Headaches I have slight headaches, which come infrequently Section 6: Concentration I can concentrate fully when I want to with slight difficulty Section 7: Work I cannot do my usual work Section 8: Driving I can drive my car as long as I want with moderate pain in my neck Section 9: Sleeping My sleep is greatly disturbed (3-5 hrs sleepless) Section 10: Recreation I am able to engage in all my recreation activities with some pain in NDI Score 19 Outpatient Therapy Assessment Impairments Problems/Impairmments Palpation Tenderness,Impaired Range of Motion,Impaired Household Care,Impaired Recreational Activities, Impaired Work Activities, Impaired Desk/Computer Activities,Subjective C/O Pain Prognosis Rehab Potential Good Clinical Impression Consistent with Diagnosis Yes Short Term Goals Number of Weeks 2 Decrease Subjective C/O Pain Yes: 4/10 at worst Patient to be Ind w/ HEP Yes Longterm Goals Number of Weeks 4-6 Decreased Palpation Tenderness Yes: 1/4 Increase Range of Motion Yes: WNL all planes Increase Ability to Drive/Ride in Car Yes Restore Ability to Lift Objects Overhead Yes Improve Ability For Household Care Yes Improve Neck Disability Index Score Yes: >30 Decrease Subjective C/O Pain Yes: 2/10 at worst Outpatient Therapy Plan of Care Treatment Plan May Include Therapeutic Exercise Including Home Yes Exercise Program Manual Therapy Techniques Yes Neuromuscular Re-education Yes Therapeutic Activities to Return to Yes Previous Functional/Work Level Gait Training Yes ADL/Self Care Education Yes Mechanical Traction Yes Dry Needling Yes Thermal Modalities Yes Electrical Stimulation Yes Ultrasound/Phonophoresis Yes Iontophoresis Yes Massage Yes Eval/Re-Eval Yes Frequency Times per week 2-3 Duration Number of Weeks 4-6 Addendums This patient is a candidate for social No or vocational rehab? Patient/Guardian verbally acknowledges Yes understanding of treatment program and consents to further treatment? Patient/Guardian verbally acknowledges Yes understanding of diagnosis, prognosis and goals for treatment? Eval Complexity PT Charges 62794 - Moderate Complexity Shoulder/Elbow Eval Shoulder Objective Measurements Elbow Objective Measurements PHYSICIAN CERTIFICATION: I certify the specified therapy services for Tari C Mindy are required, authorized, and reviewed every 30 days.
--- NOTE | 2023-12-14 17:02 | HMH.RHREAS ---
Rehab Reassessment Rehab OP Re-assessment Start: 11/04/23 18:08 Freq: Status: Active Protocol: Document 12/09/23 16:01 JOSIE (Rec: 12/14/23 17:01 JOSIE [id number]) E-signed By Austen Lyons, PT Neck Disability Index Neck Disability Index Section 1: Pain Intensity The pain is moderate at the moment Section 2: Personal Care (washing, It is painful to look after dressing, etc.) myself and I am slow and careful Section 3: Lifting Pain prevents me from lifting heavy weights, but I can manage light to Section 4: Reading I can't read as much as I want because of moderate pain in my neck Section 5: Headaches I have moderate headaches, which come infrequently Section 6: Concentration I have a fair degree of difficulty in concentrating when I want to Section 7: Work I can do most of my usual work , but no more Section 8: Driving I can't drive my car as long as I want because of moderate pain in my Section 9: Sleeping My sleep is greatly disturbed (3-5 hrs sleepless) Section 10: Recreation I am able to engage in a few of my usual recreation activities because NDI Score 26 Rehab Re-assessment Subjective Subjective Patient reports 20% improvement since start of care. Objective Objective Notes AROM: flx 28; ext 40; SBl 42; SBr 40; RR 52; RL 56 BUE MMT: WNL grossly Pain: 4/10 currently; 6/10 at worst Neuro: NT to C 7/8 dermatomes Assessment Progress Assessment Slower Than Expected Assessment Notes Patient would benefit from continuing with skilled PT services in order to address functional limitations with all driving, riding and sleeping limitations. Patient goals met STG 2 Goals Not Met STG 1, LTG'w Revised Goals NA Plan Plan Continue with current POC. Frequency of Therapy 2x/week Duration of therapy 4 weeks Time and Billing Re-Eval Time 14 Re-Eval Billing Units 1 Charge for PT reassessment? Yes PHYSICIAN CERTIFICATION: I certify the specified therapy services for Tari Guillen are required, authorized, and reviewed every 30 days.
== END 2023-12-16 23:59 | disposition home or self-care (01) ==
LOC: PT 16:00
PROVIDERS: Visit Provider Nurse Practitioner Family
DX: M43.6 Torticollis (principal); M62.838 Other muscle spasm; S46.812A Strain of other muscles, fascia and tendons at shoulder and upper arm level, left arm, initial encounter
CPT/HCPCS: 97012; 97014; 97110; 97140; 97163; 97164; G0283

== ENCOUNTER 2023-12-31 12:14 | Outpatient (CLI) | payer BC, SELFPAY ==
--- NOTE | 2023-12-31 12:20 | CT_ITS ---
FINAL REPORT TECHNIQUE: Thin section axial images were obtained from the lung apices to the upper abdomen by computed tomography. Reformatted images were obtained and reviewed. This study was performed with techniques to keep radiation doses al low as reasonably achievable (ALARA). Individualized dose reduction techniques using automated exposure control or adjustment of mA and/or kV according to the patient's size were employed. CLINICAL HISTORY: lung cancer screening current smoker 1ppd x35 years COMPARISON: None for chest CT abdomen and pelvis 02/26/2021 FINDINGS: CHEST CT LOW DOSE 58-year-old female, current smoker, 45-[id number]-[id number] history. CTDI vol (mGy): 2.9 DLP (mGy-cm): 99.25 There is no axillary adenopathy. There is no mediastinal or hilar mass or adenopathy. The heart is normal in size. There is no pericardial or pleural effusion. Lung window images demonstrate no suspicious infiltrate or nodule. Limited images of the upper abdomen demonstrate a low-density lesion in the left lobe of the liver, which was compared to a prior CT of the abdomen and pelvis dated 02/26/2021 and appears stable, likely represents a hepatic cyst. IMPRESSION: Lung-RADS category 1. Recommend 12 month follow up low dose chest CT. Reviewed, Interpreted and Dictated by Rip Quintanilla MD Transcribed by Jaimee Smith Authenticated and [facility]
--- NOTE | 2023-12-31 13:26 | MR_ITS ---
FINAL REPORT CLINICAL HISTORY: Neck pain a radiculopathy left arm x 4 months. LEFT SIDED NECK PAIN. LEFT ARM PAIN FINDINGS: Multi planar MR imaging was obtained of the cervical spine. There is abnormal decreased signal throughout the cervical discs. The vertebrae are of normal height. There is reversal of the cervical lordosis centered on C5-6. There is no malalignment. The cervical cord demonstrates normal signal and configuration. C2-C3: There is no evidence of significant disc bulge or protrusion. There is no significant facet hypertrophy. C3-C4: Moderate left paracentral disc protrusion is present with moderate compromise of the left side of the spinal canal. C4-C5: There is no evidence of significant disc bulge or protrusion. There is no significant facet hypertrophy. C5-C6: Moderate diffuse disc bulge is present with significant endplate hypertrophy. There is mild right and moderate to high-grade left neuroforaminal narrowing. C6-C7: Mild to moderate diffuse disc bulge is present with moderate bilateral neuroforaminal narrowing. C7-T1: There is no evidence of significant disc bulge or protrusion. There is no significant facet hypertrophy. IMPRESSION: Left paracentral disc fusion at C3-4 with moderate spinal canal compromise on the left. Moderate to high-grade left neuroforaminal narrowing at C5-6. Reviewed, Interpreted and Dictated by Rip Quintanilla MD Transcribed by Jane Sterling Authenticated and . [facility]
== END 2023-12-31 23:59 | disposition home or self-care (01) ==
PROVIDERS: PCP Nurse Practitioner Family; Visit Provider Family Medicine
DX: M54.2 Cervicalgia (principal); M54.10 Radiculopathy, site unspecified; F17.200 Nicotine dependence, unspecified, uncomplicated
CPT/HCPCS: 71271; 72141

== ENCOUNTER 2024-01-13 21:32 | Outpatient (CLI) | payer BC, SELFPAY ==
[2024-01-13 22:12] LABS: Basophils # 0.1 K/mm3 (0-0.2); Basophils % 1.5 % (0.1-2.0); Eosinophils # 0.4 K/mm3 (0.0-0.4); Eosinophils % 5.5 % (0.1-12.0); Hematocrit 44.1 % (37.0-47.0); Hemoglobin 14.8 g/dL (12.2-16.2); Lymphocytes # 2.2 K/mm3 (0.7-4.5); Lymphocytes % 27.9 % (10-50); Mean Corpuscular HGB Conc 33.6 g/dL (31.8-35.4); Mean Corpuscular Hemoglobin 29.1 pg (27.0-31.2); Mean Corpuscular Volume 86.5 fl (81-99); Monocytes # 0.6 K/mm3 (0.1-1.0); Monocytes % 7.4 % (1.7-9.3); Neutrophils # 4.5 K/mm3 (1.8-7.8); Neutrophils % 57.8 % (37.0-80.0); Platelet Count 326 K/mm3 (142-424); Red Blood Count 5.09 M/mm3 (4.20-5.40); Red Cell Distribution Width 14.1 % (11.5-17.5); White Blood Count 7.9 K/mm3 (4.8-10.8)
[2024-01-13 22:26] LABS: Alanine Aminotransferase 40 U/L (12-78); Albumin Level 4.4 g/dl (3.5-5.0); Albumin/Globulin Ratio 1.7 (1.1-1.8); Alkaline Phosphatase 81 U/L (38-126); Anion Gap 12.2 mEq/L (5-15); Aspartate Amino Transferase 31 U/L (14-36); Bilirubin,Total 0.6 mg/dl (0.2-1.3); Blood Urea Nitrogen 17 mg/dl (7-17); Calcium 9.7 mg/dl (8.4-10.2); Carbon Dioxide 30 mmol/L (22.0-30.0); Chloride 101 mmol/L (98-107); Chol/HDL Ratio 6.1 (1-3.5); Cholesterol 269 mg/dl (140-200); Estimated Glomerular Filt Rate 74 ml/min (>60); GFR (African American) 89 ML/MIN (>60); Globulin 2.6 g/dL (1.3-3.2); Glucose 83 mg/dl (74-100); HDL Cholesterol 44 mg/dl (40-60); Potassium 5.2 mmoL/L (3.5-5.1); Sodium 138 mmol/L (136-145); Triglycerides 212 mg/dl (30-150); VLDL Cholesterol 42 mg/dL (0-40)
[2024-01-13 22:37] LABS: Direct LDL Cholesterol 206.98 mg/dL (100-129)
[2024-01-13 22:45] LABS: 25-OH Vitamin D, Total 28.9 ng/mL (30-100)
[2024-01-13 22:56] LABS: Thyroid Stimulating Hormone 2.19 uIU/mL (0.465-4.68)
== END 2024-01-13 23:59 | disposition home or self-care (01) ==
LOC: LAB.DROPOF 21:33
PROVIDERS: PCP Nurse Practitioner Family; Visit Provider Nurse Practitioner Family
DX: M62.838 Other muscle spasm (principal); R73.03 Prediabetes
CPT/HCPCS: 80050; 80053; 80061; 82306; 84443; 85025

== ENCOUNTER 2024-09-04 16:07 | Outpatient (CLI) | payer BC, SELFPAY ==
--- OUTSIDE RECORDS SUMMARY | 2024-09-02 10:00 | XMS_ITS | Encounter Summary ---
Author Organization [facility] Address [address] [place] [address] Care Team Providers Care Linux Server Administrator Name Role Phone Juan Carlos Fernandes MD Primary Care Provider [phone] Encounter Details Date Type Department Care Team (Late st Contact Info) Description 09/02/2024 10:00 AM EDT Telemedicine [facility] [address] [phone] Kristian Mejia MD [address] [place] [address] Herniation of cervical intervertebral disc with radiculopathy; Spinal stenosis of cervical region with radiculopathy; Cervical spondylosis without myelopathy; Anxiety and depression; Current every day smoker Social History Tobacco Use Types Packs/Day Years Used Date Smoking Tobacco: Every Day Cigarettes 1 25 Started: 10/02/1988; Last attempted to quit: 10/02/2013 Passive Smoke Exposure: Current Smokeless Tobacco: Never Comments:Started back last y ear Alcohol Use Standard Drinks/Week Comments Not Currently 2 (1 standard drink = 0.6 oz pur e alcohol) Occ PHQ-2 Answer Date Recorded Patient Health Questionnaire-2 Score 0 09/02/2024 Comments No Sex and Gender Information Value Date Recorded Sex Assigned at Female 09/02/2024 9:45 AM EDT Legal Sex Female 10:02 AM EDT Gender Identity Not on file Sexual Orientation Straight 09/02/2024 9: 45 AM EDT documented as of this encounter Last Filed Vital Signs Vital Sign Reading Time Taken Comments Blood Pressure - - Pulse - - Temperature - - Respiratory Rate - - Oxygen Saturation - - Inhaled Oxygen Concentration - - Weight 109 kg (241 lb) 09/02/2024 9:46 AM EDT Height 177.8 cm (5' 10 ) 09/02/2024 9:46 AM EDT Body Mass Index 34.58 09/02/2024 9:46 AM EDT documented in this encounter Functional Status documented as of this encounter Progress Notes * Kristian Mejia MD - 09/02/2024 10:00 AM EDT Images from the original note were not included. Type of Service: Consult via telemedicine Mode of transmission: Audiovisual [employer] 2-way interactive A/V telecommunication You have chosen to receive care through a telehealth visit. Do you consent to use a video/audio connection for your medical care today? Yes Any physical exam was performed by the patient using active maneuvers per pertinent instructions. All communications with the patient were documented in the patient's medical record per documentation standards. Telemedicine Provider: Kristian Mejia MD Location of Physician: Hospital Office Patient location: [place], [employer]/intake: JOSELUIS Oliveira Chief Complaint: I did great after my injection Chronic Pain History: Ms. Tari Guillen, 59 y.o. female referred by Dr. Pratik Fowler in consultation for chronic intractable neck and left upper extremity pain. Tari Guillen reports a 1-year history of chronic intractable neck pain. Tari Guillen reports that she awoke in August 2023 with neck pain radiating into the left upper extremity into her left hand associated with numbness. She denied right upper extremity symptoms. MRI of the cervical spine w/o contrast on 12/31/2023 revealed reversal of the cervical lordosis centered at C5-C6. Alingment is preserved. Diffuse cervical spondylosis. At C3-C4: Left paracentral disc protrusion that causes stenosis of the left side of the canal and the left lateral recess. At C5-C6 and C6-C7: Disc bulges. Moderate to severe left lateral recess and NF stenosis at C5-C6 and moderate bilateral NF stenosis at C6-C7. Pain has progressed in intensity over the past months. Tari Guillen underwent neurosurgical consultation with Dr. Pratik Fowler on 01/28/2024, and was found to be a potential surgical candidate for ACDF C3-C4. Dr. Fowler recommended consideration for a selective epidural injection with follow-up thereafter. Tari Guillen has failed to obtain pain relief with conservative measures for more than 9 months including: oral analgesics, topical analgesics, ice, heat, TENs, physical therapy (completed 8weeks of PT in January), chiropractic therapy (ongoing, every 2 weeks), physical therapist home exercise program HEP (ongoing, about 10 minutes/session, 5 x week for the past months), therapeutic massage, to name a few. Pain has progressed in intensity over the past months. She was last seen on 06/23/2024, when she underwent diagnostic and therapeutic left C3-C4 transforaminal epidural steroid injection, from which she has experienced 90% ongoing pain relief and functional improvement. Just this past week, she started feeling some tingling radiating into the left collarbone. Other than that,she was doing great. She has taken nortriptyline with significant benefit for her nocturnal pain and insomnia. She denies side effects from this medication. She reports that her primary care physician did not order imaging studies of her lumbar region, yet. Pain Description: Constant neck pain with intermittent exacerbation, described as aching, dull, andsharp sensation. Radiation of Pain: The pain radiates into the left shoulder Pain intensity today: 3/10 Average pain intensity last week: 3/10 Pain intensity ranges from: 1/10 to 3/10 Aggravating factors: Pain increases with movement, extension, rotation of the cervical spine Alleviating factors: Pain decreases with rest with a pillow under her neck Associated Symptoms: Patient reports intermittent pain, numbness, and weakness in the left upper extremity. Patient denies any new bladder or bowel problems. Patient reports difficulties with her balance but denies recent falls. Patient reports bilateral cervicogenic and occipital headaches 1 per week Pain interferes with ADLs, general activities, and affects patient's quality of life Pain interferes with sleep: Falling asleep and causing sleep fragmentation Muscle spasms: LT shoulder Stiffness: Neck Review of previous therapies and additional medical records: Tari Guillen has already failed the following measures, including: Conservative Measures: Oral analgesics, topical analgesics, ice, heat, TENs, physical therapy (completed 8 weeks of PT in January), chiropractic therapy (ongoing, every 2 weeks), physical therapist home exercise program HEP (ongoing, about 10 minutes/session, 5 x week for the past months), therapeutic massage Interventional Measures: 06/23/2024: Diagnostic and therapeutic left C3-C4 transforaminal epidural steroid injection Surgical Measures: No history of previous cervical spine or shoulder surgery Tari Guillen underwent neurosurgical consultation with Dr. Pratik Fowler on 01/28/2024, and was found to be a potential surgical candidate for ACDF C3-C4. Dr. Fowler recommended consideration for a selective epidural injection with follow-up thereafter. Tari Guillen presents with significant comorbidities including HTN, depression, anxiety, smoker In terms of current analgesics, Tari Guillen takes: ibuprofen, cyclobenzaprine. Patient alsotakes citalopram I have reviewed PDMP/Shital Report consistent with medication reconciliation. SOAPP/ORT: Not completed by the patient PHQ-2 Depression Screening Little interest or pleasure in doing things? Not at all Feeling down, depressed, or hopeless? Not at all PHQ-2 Total Score 0 Pain Self-Efficacy Questionnaire (PSEQ) ITEM: Scale 0 = Does not agree 6 = Agree 06-01 I can enjoy things despite the pain. 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 3 I can socialize with my friends or family members as often as I used to do despite the pain. 2 I can cope with my pain in most situations. 3 I can do some form of work despite the pain (housework, paid and unpaid work). 1 I can still do many of the things I enjoy doing (hobbies, leisure activities, etc) despite pain. 1 I can cope with my pain without medications. 2 I can accomplish most of my goals in life despite the pain. 1 I can live in a normal lifestyle, despite the pain. 3 I can gradually become more active despite the pain. 3 TOTAL SCORE 20/60 Global Pain Scale 06-01 Pain 12 Feelings 18 Clinical outcomes 17 Activities 18 GPS Total: 65 NECK PAIN DISABILITY INDEX QUESTIONNAIRE DATE 06-01 Pain intensity 0: No pain 1: Mild pain 2: Moderate pain 3: Fairly severe pain 4: Very severe pain 5: Worst imaginable pain 2 Personal Care 0: I can look after myself normally without causing extra pain. 1: I can look after myself normally but it causes extra pain. 2: It is painful to look after myself and I am slow and careful. 3: I need some help but manage most of my personal care. 4: I need help every day in most aspects of self-care. 5: I do not get dressed. I wash with difficulty. I stay mostly in bed. 2 Lifting 0: I can lift heavy weights without extra pain. 1: I can lift heavy weights but it causes extra pain. 2: Pain prevents me from lifting heavy weights off the floor but I can manage if they are conveniently positioned, for example, on a table. 3: Pain prevents me from lifting heavy weights but I can manage light to medium weights if they areconveniently positioned. 4: I can only lift very light weights. 5: I cannot lift or carry anything at all. 4 Reading 0: I can read as much as I want to with no pain in my neck. 1: I can read as much as I want to with slight pain in my neck. 2: I can read as much as I want to with moderate pain in my neck. 3: I cannot read as much as I want to because of moderate pain in my neck. 4: I cannot read as much as I want to because of severe pain in my neck. 5: I cannot read at all because of my neck pain. 5 Headaches 0: I have no headaches at all. 1: I have slight and infrequent headaches 2: I have moderate and infrequent headaches 3: I have moderate and frequent headaches 4: I have severe and frequent headaches 5: I have constant headaches. 2 Concentration 0: I can concentrate without difficulty despite pain. 1: I can concentrate but slight difficulty due to pain. 2: I have some difficulty in concentrating 3: I have a lot of difficulty in concentrating 4: I have a great deal of difficulty in concentrating 5: I cannot concentrate at all. 2 Work 0: I can do as much work as I want to. 1: I can only do my usual work, but no more. 2: I can do most of my usual work, but no more. 3: I cannot do my usual work. 4: I can hardly do any work at all. 5: I cannot do any work at all. 4 Driving 0: I can drive my car without any neck pain. 1: I can drive my car as long as I want with slight pain in my neck. 2: I can drive my car as long as I want with moderate pain in my neck. 3: I cannot drive my car as long as I want because of moderate pain in my neck. 4: I can hardly drive at all because of severe pain in my neck. 5: I cannot drive my car at all. 3 Sleeping 0: I have no trouble sleeping. 1: My sleep is slightly disturbed (less than 1 hour sleepless). 2: My sleep is mildly disturbed (1-2 hours sleepless). 3: My sleep is moderately disturbed (2-3 hours sleepless). 4: My sleep is greatly disturbed (3-5 hours sleepless). 5: My sleep is completely disturbed (5-7 hours) 3 Recreation 0: I am able to engage in all of my recreational activities with no neck pain at all. 1: I am able to engage in all of my recreational activities with some pain in my neck. 2: I am able to engage in most, but not all of my recreational activities because of pain in my neck. 3: I am able to engage in a few of my recreational activities because of pain in my neck. 4: I can hardly do any recreational activities because of pain in my neck. 5: I cannot do any recreational activities at all. 5 TOTAL SCORE 32/50 Diagnostic Studies: MRI of the cervical spine w/o contrast on 12/31/2023. Reversal of cervical lordosis centered at C5-C6. Alingment is preserved. The cervical spinal cord has a normal caliber and signal. Axialk imaging: C2-C3: No significant canal or NF stenosis. C3-C4: Left paracentral disc protrusion. Moderate left canal and lateral recess stenosis C4-C5: No significant canal or NF stenosis. C5-C6: Disc bulge. Mild right. Moderate to severe left NF stenosis C6-C7: Disc bulge. Moderate bilateral NF stenosis C7-T1: No significant canal or NF stenosis. Patient Active Problem List Diagnosis Plantar fasciitis Acquired metatarsus adductus of left foot Pain Herniation of cervical intervertebral disc with radiculopathy Spinal stenosis of cervical region with radiculopathy Anxiety and depression Current every day smoker Encounter for smoking cessation counseling Cervical spondylosis without myelopathy Past Medical History: Diagnosis Date Cervical disc disorder 7-24 Chronic UTI Depression Encounter for smoking cessation counseling 06/01/2024 Fractures 1973 Neck pain 7-24 Past Surgical History: Procedure Laterality Date SECTION x2 CHOLECYSTECTOMY Family History Problem Relation Age of Onset Cancer Father Alcohol abuse Father Brain cancer Mother Alcohol abuse Mother Cancer Mother Early Mother Brain cancer, 46 years old Diabetes Brother Osteoarthritis Brother Diabetes Maternal Grandmother Hyperlipidemia Maternal Grandmother Anxiety disorder Daughter Depression Daughter Anxiety disorder Maternal Aunt Cancer Maternal Aunt Diabetes Brother Breast cancer Neg Hx Ovarian cancer Neg Hx Social History Socioeconomic History Marital status: Tobacco Use Smoking status: Every Day Current packs/day: 0.00 Average packs/day: 1 pack/day for 25.0 years (25.0 ttl pk-yrs) Types: Cigarettes Start date: 10/02/1988 Last attempt to quit: 10/02/2013 Years since quittin.9 Passive exposure: Current Smokeless tobacco: Never Tobacco comments: Started back last year Vaping Use Vaping status: Never Used Substance and Sexual Activity Alcohol use: Not Currently Alcohol/week: 2.0 standard drinks of alcohol Types: 2 Glasses of wine per week Comment: Occ Drug use: No Sexual activity: Not Currently Partners: Male control/protection: Post-menopausal Current Outpatient Medications: atorvastatin (LIPITOR) 20 MG tablet, Take 1 tablet by mouth Daily., Disp: , Rfl: citalopram (CeleXA) 20 MG tablet, Take 1 tablet by mouth Daily., Disp: 30 tablet, Rfl: 11 cyclobenzaprine (FLEXERIL) 10 MG tablet, Take 1 tablet by mouth 2 (Two) Times a Day As Needed., Disp: , Rfl: estradiol (ESTRACE) 0.1 MG/GM vaginal cream, using finger technique apply vaginally ONCE A DAY FOR 2 WEEKS THEN 3 times a WEEK thereafter, Disp: , Rfl: Gel Base gel, Use 2 g 4 (Four) Times a Day. prilocaine 2%, lidocaine 10%, imipramine 3%, capsaicin 0.001%, mannitol 20% cream,, Disp: 240 g, Rfl: 5 hydroCHLOROthiazide 25 MG tablet, Take 1 tablet by mouth Daily., Disp: , Rfl: ibuprofen (ADVIL,MOTRIN) 800 MG tablet, Take 1 tablet by mouth Every 6 (Six) Hours As Needed., Disp: , Rfl: losartan (COZAAR) 25 MG tablet, , Disp: , Rfl: naproxen (NAPROSYN) 500 MG tablet, Take 1 tablet by mouth Every 12 (Twelve) Hours., Disp: , Rfl: nortriptyline (PAMELOR) 10 MG capsule, 1-2 tablets QHS PRN, Disp: 60 capsule, Rfl: 2 No Known Allergies Ht 177.8 cm (70 ) Wt 109 kg (241 lb) BMI 34.58 kg/m?? Physical Exam: Constitutional: Patient appears well-developed, well-nourished, well-hydrated, appears younger thanstated age HEENT: Head: Normocephalic and atraumatic Eyes: Conjunctivae and lids are normal Pupils: Equal, round, reactive to light Neck: Trachea normal. Neck supple. No JVD present. Lymphatic: No cervical adenopathy Musculoskeletal Gait and station: Gait evaluation demonstrated a normal gait. Able to walk on heels, toes, tandem walking Cervical Spine: Passive and active range of motion are limited secondary to pain. Extension, flexion, lateral flexion, rotation of the cervical spine increased and reproduced pain. Cervical facet joint loading maneuvers are positive. Muscles: Presence of active trigger points: None Right Shoulder: The range of motion of the right glenohumeral joint is full and without pain. Rotator cuff strength is 5/5. Left Shoulder: The range of motion of the left glenohumeral joint is full and without pain. Rotatorcuff strength is 5/5 Neurological: Patient is alert and oriented to person, place, and time. Speech: Normal. Cortical function: Normal mental status. Reflex Scores: Right brachioradialis: 2+ Left brachioradialis: 2+ Right biceps: 2+ Left biceps: 2+ Right triceps: 2+ Left triceps: 2+ Right patellar: 1+ Left patellar: 1+ Right Achilles: 0+ Left Achilles: 0+ Motor strength: 5/5 Motor Tone: Normal Involuntary movements: None. Superficial/Primitive Reflexes: Primitive reflexes were absent. Right Tucker: Absent Left Tucker: Absent Right ankle clonus: Absent Left ankle clonus: Absent Babinsky: Absent Spurling sign: Positive. Neck tornado test: Positive. Lhermitte sign: Negative. Long tract signs: Negative. Sensory exam: Intact to light touch, intact pain and temperature sensation, intact vibration sensation and normal proprioception Coordination: Finger to nose: Normal. Balance: Normal Romberg's sign: Negative Skin and subcutaneous tissue: Skin is warm and intact. No rash noted. No cyanosis. Psychiatric: Judgment and insight: Normal. Recent and remote memory: Intact. Mood and affect: Normal. ASSESSMENT: 1. Herniation of cervical intervertebral disc with radiculopathy 2. Spinal stenosis of cervical region with radiculopathy 3. Cervical spondylosis without myelopathy 4. Anxiety and depression 5. Current every day smoker PLAN/MEDICAL DECISION MAKING: Ms. Tari Guillen, 59 y.o. female referred by Dr. Pratik Fowler in consultation for chronic intractable neck and left upper extremity pain. Tari Guillen reports a 1-year history of chronic intractable neck pain. Tari Guillen reports that she awoke in August 2023 with neck pain radiating into the left upper extremity into her left hand associated with numbness. She denied right upper extremity symptoms. MRI of the cervical spine w/o contrast on 12/31/2023 revealed reversal of the cervical lordosis centered at C5-C6. Alingment is preserved. Diffuse cervical spondylosis. At C3-C4: Left paracentral disc protrusion that causes stenosis of the left side of the canal and the left lateral recess. At C5-C6 and C6-C7: Disc bulges. Moderate to severe left lateral recess and NF stenosis at C5-C6 and moderate bilateral NF stenosis at C6-C7. Pain hasprogressed in intensity over the past months. Tari Guillen underwent neurosurgical consultation with Dr. Pratik Fowler on 01/28/2024, and was found to be a potential surgical candidate for ACDF C3-C4. Dr. Fowler recommended consideration for a selective epidural injection with follow-up thereafter. Tari Guillen has failed to obtain pain relief with conservative measures for more than 9 months including: oral analgesics, topical analgesics, ice, heat, TENs, physical therapy (comp leted 8 weeks of PT in January), chiropractic therapy (ongoing, every 2 weeks), physical therapisthome exercise program HEP (ongoing, about 10 minutes/session, 5 x week for the past months), therapeutic massage, to name a few. Pain has progressed in intensity over the past months. She was last seen on 06/23/2024, when she underwent diagnostic and therapeutic left C3-C4 transforaminal epidural steroid injection, from which she has experienced 90% ongoing pain relief and functional improvement.Just this past week, she started feeling some tingling radiating into the left collarbone. Other than that, she was doing great. She has taken nortriptyline with significant benefit for her nocturnalpain and insomnia. She denies side effects from this medication. She reports that her primary care physician did not order imaging studies of her lumbar region, yet. A comprehensive evaluation--including a detailed history, physical examination, and relevant physiologic and functional assessments--was conducted. The patient presents with intractable pain attributed to the diagnoses listed above. This pain has persisted despite trials of conservative modalities, as documented in the HPI and previous records. Global Pain Scale: (from first visit: 65 /100) Neck Pain Disability Index: (from first visit: 32 /50) Tinetti Gait & Balance Assessment Tool: low fall risk Additionally, I have reviewed relevant diagnostic imaging and studies supporting the chronicity andseverity of the patient???s pain condition. I have also reviewed available medical records, including documentation of previous therapies and treatment outcomes. Psychological screening was also performed: PHQ-9: 0 (from first visit: 16) Pain Self-Efficacy Questionnaire (PSEQ): (from first visit: ) I conducted a detailed discussion with Ms. Tari Guillen regarding the nature of her chronic pain condition and reviewed potential therapeutic options. This conversation included a review of the risks, benefits, alternatives, and the rationale for each approach. We agreed to pursue a stepwisetreatment strategy, beginning with the least invasive interventions appropriate to the severity andcomplexity of the patient???s condition. The proposed treatment plan is consistent with current clinical guidelines and evidence-based standards of care. Its scope, duration, and setting are medically appropriate, with the intent to improve function, reduce pain, and enhance quality of life. Boris castañeda, I recommend the following plan: 1. Interventional pain management measures: Patient does not take blood thinners. None indicated atthis time. Patient has met the criteria for repeat procedure if necessary. In that case, she will be scheduled for therapeutic left C3-C4 transforaminal epidural steroid injection using the lowest effective dose of steroids, under C-arm fluoroscopic guidance, with the use of contrast dye unless contraindicated to confirm appropriate needle placement and spread of contrast dye. We may repeat therapeutic left C3-C4 transforaminal epidural steroid injection depending on patient's outcome and following current guidelines. Epidurals will be limited to a maximum of 4 sessions per spinal region in arolling twelve (12) month period. Continuation of epidural steroid injections over 12 months would only be considered under the following provisions; Patient is a high-risk surgical candidate, or the patient does not desire surgery, or recurrence ofpain in the same location relieved with ESIs for at least three months and epidural provides at least 50% sustained improvement of pain and/or 50% objective improvement in function (using same scale as baseline) Pain is severe enough to cause a significant degree of functional disability or vocational disability The primary care provider will be notified regarding continuation of procedures and repeat steroid use Other targets: Diagnostic left C6 selective nerve root injection. The patient will follow-up with Dr. Fowler thereafter. The patient also reports a history of chronic lower back pain and will discuss with her primary care physician about obtaining imaging. 2. Diagnostic studies: None indicated at this time A. If she continues to struggle; Cervical Spine X-rays, full views including flexion and extension to assess cervical stability B. If she continues to struggle; EMG/NCV of the bilateral upper extremities 3. Pharmacological measures: Reviewed and discussed; A. Patient takes ibuprofen, gabapentin, cyclobenzaprine. Patient also takes citalopram B. Continue prilocaine 2%, lidocaine 10%, imipramine 3%, capsaicin 0.001%, and mannitol 20% cream, apply 1 to 2 grams of cream to the affected areas every 4 to 6 hours as needed C. Continue nortriptyline 10 mg 1 to 2 tablets at bedtime for pain and insomnia, #60, no refills (refilled today) 4. Long-term rehabilitation efforts: A. The patient does not have a history of falls. I performed a risk assessment for falls using the Tinetti gait & balance assessment tool (scored low risk for falls). B. Patient has completed a physical therapy program. She is engaged in a chiropractic therapy program. C. Continue contrast therapy: Apply ice-packs for 15-20 minutes, followed by heating pads for 15-20minutes to affected area D. I will consider prescribing a home traction unit E. Tari Guillen reports that she has been smoking cigarettes. She started smoking about 35 years ago. She has a 25 pack-year smoking history. She has been exposed to tobacco smoke. She has never used smokeless tobacco. During her first visit, I educated her on the risk of diseases from usingtobacco products such as cancer, COPD, heart disease, cataracts, and arterial disease. I advised her to quit and she is willing to quit. Referral to Smoking Cessation Program: Quit now [place]: Enroll at www.quit[place].org or call 5-127-XMGENOW (675-7676). The program provides a holistic approach to smoking cessation including NRT, coaching, etc. I spent 4 minutes counseling the patient. 5. The patient has been instructed to contact my office with any questions or difficulties. The patient understands the plan and agrees to proceed accordingly. The patient has a documented plan of care to address chronic pain. Tari Guillen reports a pain score of 3/10. Given her pain assessment as noted, treatment options were discussed and the following options were decided upon as a follow-up plan to address the patient's pain: continuation of current treatment plan for pain, educational materials on pain management, home exercises and therapy,patient declined analgesics, prescription for non-opiod analgesics, referral to Physical Therapy, referral to specialist for assistance in pain treatment guidance, steroid injections, use of non-medical modalities (ice, heat, stretching and/or behavior modifications), and interventional pain management measures. Pain Management Panel No data to display Patient does not receive prescriptions for controlled substances from this office. Therefore, a controlled substance agreement is not medically necessary at this time. SHITAL query complete. SHITAL reviewed by Kristian Mejia MD. Pain Medications citalopram (CeleXA) 20 MG tablet Take 1 tablet by mouth Daily. cyclobenzaprine (FLEXERIL) 10 MG tablet Take 1 tablet by mouth 2 (Two) Times a Day As Needed. ibuprofen (ADVIL,MOTRIN) 800 MG tablet Take 1 tablet by mouth Every 6 (Six) Hours As Needed. naproxen (NAPROSYN) 500 MG tablet Take 1 tablet by mouth Every 12 (Twelve) Hours. nortriptyline (PAMELOR) 10 MG capsule 1-2 tablets QHS PRN No orders of the defined types were placed in this encounter. Visit was completed using a telephone due to technical difficulties with patient's connection to [employer] Please note that portions of this note were completed with a voice recognition program. Any copied data in any portion of my note from previous notes included in the HPI, PE, MDM and/or assessment and plan has been reviewed by myself and accurate as of this date. The Cures Act makes medical notes like this available to patients in the interest of transparency. This is a medical document intended as peer to peer communication. It is written in medical language and may contain abbreviations or verbiage that are unfamiliar. It may appear blunt or direct. Medical documents are intended to carry relevant information, facts as evident, and the clinical opinion of the practitioner. Kristian Mejia MD Patient Care Team: Juan Carlos Fernandes MD as PCP - General (Emergency Medicine) New Medications Ordered This Visit Medications nortriptyline (PAMELOR) 10 MG capsule Si-2 tablets QHS PRN Dispense: 60 capsule Refill: 2 No future appointments. documented in this encounter Plan of Treatment Not on file documented as of this encounter Visit Diagnoses Diagnosis Herniation of cervical intervertebral disc with radiculopathy Spinal stenosis of cervical region with radiculopathy Cervical spondylosis without myelopathy Anxiety and depression Current every day smoker documented in this encounter Care Teams Linux Server Administrator Relationship Specialty Start Date End Date Juan Carlos Fernandes MD PCP - General Emergency Medicine 01/03/21 documented as of this encounter
--- OUTSIDE RECORDS SUMMARY | 2024-09-04 16:10 | XMS_ITS | Clinical Summary ---
Author Organization Healthcare Address [address] [place] [address] Care Team Providers Care Senior Quality Assurance Analyst Name Role Phone Cecy Hale MD Primary Care Provider [phone] Encounters Date Type Department Care Team Description 08/06/2024 Telephone [facility] Urology [address] [place] [address] Griselda Thakkar from Last 3 Months Family History Medical History Relation Name Comments Diabetes Other 1 Other cancer Other 2 Relation Name Status Comments Other 1 Other 2 Social History Tobacco Use Types Packs/Day Years Used Date Smoking Tobacco: Former Comments Unknown Sex and Gender Information Value Date Recorded Sex Assigned at Not on file Legal Sex Female 6:14 PM EDT Gender Identity Not on file Sexual Orientation Not on file Last Filed Vital Signs Vital Sign Reading Time Taken Comments Blood Pressure 110/77 02/24/2019 9:49 AM EST Pulse 52 02/24/2019 9:49 AM EST Temperature - - Respiratory Rate - - Oxygen Saturation - - Inhaled Oxygen Concentration - - Weight 90.7 kg (200 lb) 02/24/2019 9:49 AM EST Height 175.3 cm (5' 9 ) 02/24/2019 9:49 AM EST Body Mass Index 29.54 02/24/2019 9:49 AM EST Plan of Treatment Upcoming Encounters Date Type Department Care Team (Late st Contact Info) Description 11/26/2024 8:00 AM EDT Consult [facility] Urology [address] [place] [address] Madhavi Juares, INSURANCE SPECIAL AGENT [address] [place] [address] Health Maintenance Due Date Last Done Comments [facility]-Depression Screening 1965 [facility]-Infant/Child/Adol SDOH Screenings 1965 [facility]- SDOH Screenings 07/09/1983 [facility]-Adult SDOH Screenings 07/09/1983 [facility]-DTaP,Tdap,and Td Vaccines (1 - Tdap) 1984 [facility]-Hepatitis B Vaccines (1 of 3 - 19+ 3-dose series) 1984 [facility]-Pap Smear 1986 [facility]-Cervical Cancer Screening 07/09/1995 [facility]-HPV/Cotest 07/09/1995 CT Colonography 2010 Colonoscopy 2010 FIT-DNA 2010 FIT 2010 FOBT 2010 Sigmoidoscopy 2010 [facility]-Colorectal Cancer Screening 2010 [facility]-Pneumococcal Vaccine: 50+ Years (1 of 1 - PCV) 07/09/2015 [facility]-Zoster Vaccines (1 of 2) 07/09/2015 [facility]-Influenza Vaccine (#1) 10/11/202411/20, 11/30/2019, 11/09/2018, Additional history exists [id number] Vaccine Completed 11/21/2023, 12/29/2020, 04/01/2020, Additional history exists HPV Vaccines Aged Out No longer eligi ble based on patient's age to complete this topic [facility]-HIB Vaccines Aged Out No longer e ligible based on patient's age to complete this topic [facility]-Hepatitis A Vaccines Aged Out No longer eligible based on patient's age to complete this topic [facility]-IPV Vaccines Aged Out No longer e ligible based on patient's age to complete this topic [facility]-Rotavirus Vaccines Aged Out No lo nger eligible based on patient's age to complete this topic Insurance ANTHEM Care Teams Senior Quality Assurance Analyst Relationship Specialty Start Date End Date Cecy Hale MD PCP - General 06/23/20
--- OUTSIDE RECORDS SUMMARY | 2024-09-04 16:10 | XMS_ITS | Data Portability ---
Author Organization [facility] Address [address] [place] [address] Assessment Encounter Date Assessment Date Assessment LastModified by Organization Details LastModified Time 01/14/2011 01/14/2011 Patient had not picked up the fluoxetine that was prescribed on 12/10/10. We discussed the medication and its effecacy for pmdd; Se has faile citalopram and did wean herself off it. F/U prn and 3 months. She sees a turner in and has regular mammograms. [email or web address] Not available 01/14/2011 12:31:50 08/23/2016 08/23/2016 Tari has cholecystitis and cholelithiasis recently diagnosed through ER and she is symptomatic. She lives in [place] and will be referred to surgeon, Dr Mena . She also suffers a left bunion that has been bothering her and she has already had the right bunion deformity corrected surgically years ago. [email or web address] Not available 08/23/2016 21:53:51 Plan of Treatment Reminders Order Date Submit Date Provider Last Modified By Organization Details Last Modified Time Details Appointments None recorded. Lab None recorded. Referral general surgeon referral 2016 017 CHETNA Tan, [address], [place], [address], 8 05:00:56 orthopedic referral 2016 017 CHETNA Tilley MD, [address], [address], [place], [address], 8 05:00:56 Procedures None recorded. Surgeries None recorded. Imaging None recorded. Medication Orders None recorded. Patient TargetsNo targets recorded. Patient InstructionsNo instructions recorded. Reason for Referral Orthopedic Referral for Buni on bunion with pain Referring Physician: Kaila Sosa, Family Medicine, Encounter Date: 08/23/2016 General Surgeon Referral for Calculus of gallbladder with cholecystitis Referring Physician: Kaila Sosa Family Medicine, Encounter Date: 08/23/2016 Results Created Date Observation Date Name Description Value Unit Range Abnormal Flag Note LastModifiedBy Organization Detail LastModifiedTime 08/23/19 17 08/22/2016 [place], ashleigh combs r No observ ation record ed. [facility] (Registration ) [address] [facility], [place], [address], 08/23/2016 09:54:32 Result Notes None recorded. Problems Name Problem SNOMED Code Status Onset Date Resolution Date Notes Provider Name and Address Organization Details Recorded Time Premenstrual tension syndrome 29955388 Active Not Available [facility] 3 03:01:14 Depressive disorder 58463819 Active Not Available [facility] 3 03:01:14 Problem Notes None recorded. Procedures Surgical History Date Name Laterality Status Provider Name and Address Organization Details Recorded Time 0 Other completed Not Available [facility] 1 04:58:32 8 Caesarean Section completed Not Available [facility] 12/25/2010 04:58:32 4 Caesarean Section completed Not Available [facility] 12/25/2010 04:58:32 2 Other completed Not Available [facility] 1 04:58:32 Imaging Results None recorded. Procedure Notes None recorded. Medical Equipment None Reported. Allergies No known drug allergies Medications Name Sig Start Date Stop Date Status Note LastModified by Organization Details LastModified Time fluoxetin e 40 mg capsule 04/19 completed Not Available Not Available Not Available amoxicill in 500 mg capsule 08/11 completed Not Available Not Available Not Available ibuprofen 800 mg tablet active Not Available Not Available Not Available citalopra m 10 mg tablet 08/25 completed Not Available Not Available Not Available medroxypr ogesteron e 2.5 mg tablet 08/23 completed Not Available Not Available Not Available fluconazo le 200 mg tablet 04/14 completed Not Available Not Available Not Available ondansetr on HCl 4 mg tablet active Not Available Not Available No t Available estradiol 1 mg tablet 08/23 completed duplicat e Not Available Not Available Not Available Tylenol 500 mg tablet Take 1 tablet every 4 hours by oral route as needed. active Not Available Not Available No t Available fluoxetin e 20 mg capsule Take 1 capsule every day by oral route. 05/07 completed Not Available Not Available Not Available dicyclomi ne 10 mg capsule active Not Available Not Available Not Available amoxicill in 875 mg-potass ium clavulana te 125 mg tablet 04/22 completed Not Available Not Available Not Available estradiol -norethin drone acet 0.5 mg-0.1 mg tablet active Not Available Not Available Not Available Viibryd 40 mg tablet active Not Available Not Available Not Available Vitals Date Recorded Body height Body mass index (BMI) Body weight Heart rate Oxygen saturation Oxygen saturation in Arterial blood by Pulse oximetry Body temperature Systolic And Diastolic Provider Name and Address Organization Details Last Updated DateTime 7 175.26 cm 31.5 kg/m2 50318.8 7 g 76 /min 98 % 98 % 98.6 [degF] 123/77 mm[Hg] [facility] 7 08:37:29 Date Recorded Body height Body weight Body mass index (BMI) Heart rate Oxygen saturation Oxygen saturation in Arterial blood by Pulse oximetry Body temperature Systolic And Diastolic Provider Name and Address Organization Details Last Updated DateTime 1 177.8 cm 07382.4 38995 g 25.2 kg/m2 64 /min 100 % 100 % 98.2 [degF] 117/76 mm[Hg] [facility] 1 11:16:38 Social History Question Answer Notes LastModified by Organizat ion Details LastModified Time Tobacco Smoking Status Former Smoker Not Available [facility] 12/07/2019 03:11:21 Is Blood Transfusion Acceptable In An Emergency? Yes [id number] Information not available 12/07/2019 Diabetes No Information not available 12/25/2010 Family History Of Heart Disease? No Information not available 12/25/2010 High Blood Pressure Yes Information not available 12/25/2010 Marital Status [id number] Information not available 12/25/2010 How Many Children Do You Have? 2 [id number] Information not available 12/07/2019 How Much Tobacco Do You Smoke? No [id number] Information not available 12/07/2019 Sex: Unknown Functional Status Question Answer Note LastModified by Organizat ion Details LastModified Time What is your level of alcohol consumption? None [id number] Information not available 12/07/2019 Are you able to care for yourself independently ? 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 Family History Relationship Description Onset Age of this Age Resolved Age Notes LastModified by Organization Details LastModified Time Mother Malignant neoplastic disease previo usly record ed as Cancer [id number] Not available 11/08/2012 03:00:57 Maternal Aunt Diabetes mellitus previo usly record ed as Diabet es [id number] Not available 11/08/2012 03:00:57 Father Substance abuse previo usly record ed as Alcoho l/Subs tance Abuse Not available 11/08/2012 03:00:57 Brother Diabetes mellitus previo usly record ed as Diabet es [id number] Not available 11/08/2012 03:00:57 Medical History Condition Response Coronary Artery Disease N Gout N Kidney Stones N Blood Diseases Y Hyperthyroidism N Depression Y Hypothyroidism N COPD N Developmental or Behavioral Disorders N Eczema, Hives or other skin conditions N Anxiety Disorder Y Muscle, Joint, or Bone Problems N Vision or Eye Problems N Arthritis N Serious Illness or Injuries N Congenital Anomalies N Cancer N Stroke N Bladder or Kidney Problems N Hospital Admission other than Y High Cholesterol N Liver Disease N Fibromyalgia N Kidney Disease N Heart Problems N Ear or Hearing Problems N ADD or ADHD N Thyroid Problems N Skin Problems N Anemia Y Constipation N Diabetes N Bedwetting N Seizures/Epilepsy N Tuberculosis N Diverticulitis N Allergies N Asthma N GERD/Reflux N Heart Disease N Pulmonary Embolism N Hypertension Y Osteoporosis N Chicken Pox Y Gynecological History Statement/Question Response Date of LMP 12/31/2010 Frequency of Cycle (Q days) 28 Menses Monthly Y Duration of Flow (days) 4 Age at Menarche 15 Current Control Method Partner Vas ectomy LMP Definite Obstetrics History GPAL:G 0 P 0 0 0 0 Past Encounters Encounter ID Performer Location Encounter Start Date Encounter Closed Date Diagnosis/Indication Diagnosis SNOMED-CT Code Diagnosis ICD10 Code Diagnosis Note [id number] Kaila Sosa MD [facility] [address] [address] 01/14/2011 10:42:03 01/14/2011 15:58:31 [id number] Kaila Sosa MD [facility] [address] [address] 08/23/2016 08:20:25 08/27/2016 09:52:02 Calculus of gallbladder with cholecystitis 34691752 K80.10 Body mass index 30+ - obesity 210175078 Z68.31 Bunion 199365180 M21.61 9 Health Concerns Section Related Observation LastModified by Organization Detai ls LastModified Time None Recorded Concern Status LastModified by Organization Details LastModified Time None Recorded Advance Directives Directive None Recorded Payers Insurance Date Sequence Insurance Name Policy Number Policy Looney Covered Member ID Looney Member ID Guarantor Name 08/23/2016 1 [facility] - [facility] - FOR[facility]LY [facility] MAXIMUM CHOICE (PPO) [id number] Tari Mindy [id number] Tari Mindy 11/29/2010 1 *SELF PAY* Ja yda Mindy 08/23/2016 1 [employer] (PPO) [id number] Kali Guillen [id number] Tari Mindy Notes Date Note Type Note Provider Name and Address Organization Details Recorded Time 01/14/2011 text/html ROS as noted in the HPI Kaila Sosa MD [address] [facility], [address], [place], [address], [facility] 01/14/2011 12:32:12 08/23/2016 text/html Got suddenly very ill with abdominal pain and vomiting and had an ultrasound and has cholecystitis and cholelithiasis. She had been at a [facility] in the [facility]. ER report reviewed and we noted UDS positive for hydrocodone, benzodiazepines and THC. Patient has no prescription for those medications Has not been seen here for over 6 years in our office. 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 08/23/2016 21:54:03 OBGyn Episode No OBEpisode recorded.
--- OUTSIDE RECORDS SUMMARY | 2024-09-04 16:10 | XMS_ITS | Clinical Summary ---
[facility] Organization [facility] Address [address] [place] [address] Care Team Providers Care Popcorn Candy Maker Name Role Phone Juan Carlos Fernandes MD Primary Care Provider [phone] Allergies No known active allergies Medications losartan (COZAAR) 25 MG tablet 03/20/19 23 Active citalopram (CeleXA) 20 MG tabletIndications :Anxiety Take 1 tablet by mouth Daily. 30 tablet 11 04/02/19 23 Active hydroCHLOROthiazi de 25 MG tablet Take 1 tablet by mouth Daily. 01/13/20 24 Active cyclobenzaprine (FLEXERIL) 10 MG tablet Take 1 tablet by mouth 2 (Two) Times a Day As Needed. 01/15/20 24 Active ibuprofen (ADVIL,MOTRIN) 800 MG tablet Take 1 tablet by mouth Every 6 (Six) Hours As Needed. Active atorvastatin (LIPITOR) 20 MG tablet Take 1 tablet by mouth Daily. 05/19/19 25 Active Gel Base gel Use 2 g 4 (Four) Times a Day. prilocaine 2%, lidocaine 10%, imipramine 3%, capsaicin 0.001%, mannitol 20% cream, 240 g 5 06/02/19 25 Active estradiol (ESTRACE) 0.1 MG/GM vaginal cream using finger technique apply vaginally ONCE A DAY FOR 2 WEEKS THEN 3 times a WEEK thereafter 08/03/19 25 Active naproxen (NAPROSYN) 500 MG tablet Take 1 tablet by mouth Every 12 (Twelve) Hours. 08/11/19 25 Active nortriptyline (PAMELOR) 10 MG capsule 1-2 tablets QHS PRN 60 capsule 2 09/03/19 25 Active gabapentin (NEURONTIN) 300 MG capsuleIndication s:Cervical spondylosis with radiculopathy Take 1 capsule by mouth Take As Directed. 90 capsule 3 01/28/20 24 025 Discontin ued(*Ther apy completed ) nortriptyline (PAMELOR) 10 MG capsule TAKE 1 TO 2 CAPSULES BY MOUTH AT BEDTIME NEEDED FOR SLEEP 60 capsule 2 08/06/19 25 025 Discontin ued(Reord er) Active Problems Problem Noted Date Diagnosed Date Anxiety and depression 06/01/2024 Current every day smoker 06/01/2024 Encounter for smoking cessation counseling 06/01 Cervical spondylosis without myelopathy 06/02/19 25 Herniation of cervical inter vertebral disc with radiculopathy 02/12/2024 Spinal stenosis of cervical region with radiculo wero 02/12/2024 Plantar fasciitis 10/03/2016 Acquired metatarsus adductus of left foot 2016 Pain 10/03/2016 Encounters Date Type Department Care Team Description 09/02/2024 10:00 AM EDT Telemedicine [facility] [address] [facility] [address] [place] [phone] Kristian Mejia MD Herniation of cervical intervertebral disc with radiculopathy; Spinal stenosis of cervical region with radiculopathy; Cervical spondylosis without myelopathy; Anxiety and depression; Current every day smoker 08/03/2024 Refill [facility] [address] [facility] [address] [place] [address] Kristian Mejia MD 07/09/2024 Refill [facility] [address] [facility] [address] [place] [address] Kristian Mejia MD 06/30/2024 Telephone [facility] [address] [facility] [address] [place] [address] Roxanne Lovett MA from Last 3 Months Family History Medical History Relation Name Comments Diabetes Brother 1 Senthil Osteoarthritis Brother 1 Senthil Diabetes Brother 2 Keshav Anxiety disorder Daughter Zuleima Depression Daughter Zuleima Alcohol abuse Father My dad Cancer Father My dad Anxiety disorder Maternal Aunt Bembi Cancer Maternal Aunt Bembi Diabetes Maternal Grandmother Granranda Hyperlipidemia Maternal Grandmother Granranda Alcohol abuse Mother My mom Brain cancer Mother My mom Cancer Mother My mom Early Mother My mom Brain cancer, 4 6 years old Breast cancer Neg Hx Ovarian cancer Neg Hx Relation Name Status Comments Brother 1 Senthil Brother 2 Keshav Alive Daughter Zuleima Father My dad Maternal Aunt Bembi Maternal Grandmother Granny Mother My mom Social History Tobacco Use Types Packs/Day Years Used Date Smoking Tobacco: Every Day Cigarettes 1 25 Started: 10/02/1988; Last attempted to quit: 10/02/2013 Passive Smoke Exposure: Current Smokeless Tobacco: Never Tobacco Cessation:Ready to Q uit: Not Asked; Counseling Given: Not Answered Comments:Started back last year Alcohol Use Standard Drinks/Week Comments Not Currently [...] Orientation Straight 09/02/2024 9: 45 AM EDT Last Filed Vital Signs Vital Sign Reading Time Taken Comments Blood Pressure 138/78 04/02/2022 10:52 AM EST Pulse 67 10/02/2016 10:31 AM EDT Temperature 36.2 C (97.1 F) 01/28/2024 10:46 AM EST Respiratory Rate - - Oxygen Saturation - - Inhaled Oxygen Concentration - - Weight 109 kg (241 lb) 09/02/2024 9:46 AM EDT Height 177.8 cm (5' 10 ) 09/02/2024 9:46 AM EDT Body Mass Index 34.58 09/02/2024 9:46 AM EDT Plan of Treatment Health Maintenance Due Date Last Done Comments Pneumococcal Vaccine 50+ (1 of 2 - PCV) 1984 TDAP/TD VACCINES (1 - Tdap) 1984 COLOGUARD 2010 COLON CANCER SCREENING 5 YEA R SIGMOIDOSCOPY 2010 COLONOSCOPY 2010 COLORECTAL CANCER SCREENING 2010 CT COLONOGRAPHY 2010 FECAL OCCULT BLOOD TEST 2010 FIT Testing (1 year) 2010 LUNG CANCER SCREENING 07/09/2015 ZOSTER VACCINE (1 of 2) 07/09/2015 ANNUAL PHYSICAL 10/02/2016 HEPATITIS C SCREENING 10/02/2016 MAMMOGRAM 02/08/2023 02/08/2021 Annual Gynecologic Pelvic an d Breast Exam 04/03/2023 04/02/2022, 12/14/2020 PAP SMEAR 12/15/2023 12/14/2020 INFLUENZA VACCINE 11/10/2024 11/21/2023, , 11/09/2018, Additional history exists COVID-19 Vaccine Completed 11/21/2023, , 04/01/2020, Additional history exists Procedures Procedure Name Priority Date/Time Associated Diagnosis Comments MAMMO SCREENING DIGITAL TOMOSYNTHESIS BILATERAL W CAD Routine 02/08/2021 10:21 AM EST Screening mammogram for breast cancer SCANNED - PAP SMEAR Routine 12/14/2020 from Last 3 Months or Most Recently Relevant to Health Maintenance Results * (ABNORMAL) Mammo Screening Digital Tomosynthesis Bilateral With CAD (02/08/2021 10:21 AM EST) Anatomical Region Laterality Modality Breast N/A Mammography 02/12/2021 3:19 PM EST Impressions 02/12/2021 3:29 PM EST Bilateral focal asymmetries ACR BI-RADS CATEGORY: 0, INCOMPLETE: NEED ADDITIONAL IMAGING EVALUATION RECOMMENDATION: Spot compression views CAD was utilized. The standard false-negative rate of mammography is between 10% and 25%. Complex patterns or increased breast density will markedly elevate the false-negative rate of mammography. A letter, in lay terminology, with the results of this exam will be mailed to the patient. The patient will be contacted by our office to schedule for the additional imaging evaluation. Please accept this as sufficient order for the additional imaging evaluation. Physicians Order Diagnostic Mammogram with Breast Ultrasound if needed Diagnosis: Abnormal Mammogram This report was finalized on 02/12/2021 3:29 PM by Caridad Osorio MD. Narrative 02/12/2021 3:29 PM EST BILATERAL DIGITAL SCREENING MAMMOGRAM WITH TOMOSYNTHESIS CLINICAL INDICATION: Routine screening TECHNIQUE: Low dose full field digital breast tomosynthesis imaging was performed with 2D and 3D acquisitions consisting of bilateral CC and MLO views. COMPARISON: 2013 FINDINGS: There are scattered fibroglandular densities. RIGHT BREAST: There is a lobulated asymmetry within the posterior depth upper outer right breast. LEFT BREAST: There is an oval focal asymmetry within the central posterior depth left breast. us Xiao Yusuf APRN [facility] MAMMOGRAPHY ORDERABLES Final Result * PAP SMEAR SCANNED (12/14/2020) us Xiao Yusuf APRN CHART REVIEW TABS Final Result [facility]
[address] [place] [address], [place] [phone] from Last 3 Months or Most Recently Relevant to Health Maintenance Insurance MEDICAID PENDING on file [employer] EMPLOYEE Care Teams Popcorn Candy Maker Relationship Specialty Start Date End Date Juan Carlos Fernandes MD PCP - General Emergency Medicine 01/03/21
--- OUTSIDE RECORDS SUMMARY | 2024-09-04 16:10 | XMS_ITS | Encounter Summary ---
Author Organization [facility] Address [address] [place] [address] Care Team Providers Care Blood Tester Fowl Name Role Phone Juan Carlos Fernandes MD Primary Care Provider [phone] Reason for Visit * Reason Comments Med Refill Encounter Details Date Type Department Care Team (Late st Contact Info) Description 07/09/2024 Refill [facility] [address] [phone] Kristian Mejia MD [address] [place] [address] Social History Tobacco Use Types Packs/Day Years Used Date Smoking Tobacco: Every Day Cigarettes 1 25 Started: 10/02/1988; Last attempted to quit: 10/02/2013 Passive Smoke Exposure: Current Smokeless Tobacco: Never Comments:Started back last y ear Alcohol Use Standard Drinks/Week Comments Not Currently 2 (1 standard drink = 0.6 oz pur e alcohol) Occ PHQ-2 Answer Date Recorded Patient Health Questionnaire-9 Score 16 06/01/2024 Comments No Sex and Gender Information Value Date Recorded Sex Assigned at Female 09/02/2024 9:45 AM EDT Legal Sex Female 10:02 AM EDT Gender Identity Not on file Sexual Orientation Straight 09/02/2024 9: 45 AM EDT documented as of this encounter Plan of Treatment Not on file documented as of this encounter Visit Diagnoses Not on filedocumented in this encounter Care Teams Blood Tester Fowl Relationship Specialty Start Date End Date Juan Carlos Fernandes MD PCP - General Emergency Medicine 01/03/21 documented as of this encounter
--- OUTSIDE RECORDS SUMMARY | 2024-09-04 16:10 | XMS_ITS | Encounter Summary ---
[facility] Address [address] [place] [address] Care Team Providers Care Steam Shovelman Name Role Phone Juan Carlos Fernandes MD Primary Care Provider [phone] Reason for Visit * Reason Comments Med Refill Encounter Details Date Type Department Care Team (Late st Contact Info) Description 02/19/2022 Refill [facility] [address] [place] [address] Xiao Yusuf, WORLD TRAVEL COUNSELOR Women's annual routine gynecological examination Social History Tobacco Use Types Packs/Day Years Used Date Smoking Tobacco: Former Cigarettes 1 25 0 10/02/1988 - 10/02/2013 Smokeless Tobacco: Never Alcohol Use Standard Drinks/Week Comments Yes 0 (1 standard drink = 0.6 oz pur e alcohol) Occ Comments No Sex and Gender Information Value Date Recorded Sex Assigned at Female 09/02/2024 9:45 AM EDT Legal Sex Female 10:02 AM EDT Gender Identity Not on file Sexual Orientation Straight 09/02/2024 9: 45 AM EDT documented as of this encounter Miscellaneous Notes * Telephone Encounter - Christin Hinojosa MA - 02/20/2022 7:34 AM EST Pt needs annual appt documented in this encounter Plan of Treatment Not on file documented as of this encounter Visit Diagnoses Diagnosis Women's annual routine gynecological examination documented in this encounter Care Teams Steam Shovelman Relationship Specialty Start Date End Date Juan Carlos Fernandes MD PCP - General Emergency Medicine 01/03/21 documented as of this encounter
--- OUTSIDE RECORDS SUMMARY | 2024-09-04 16:10 | XMS_ITS | Encounter Summary ---
Author Organization [facility] Address [address] [address] Care Team Providers Care Quality Inspector Name Role Phone Juan Carlos Fernandes MD Primary Care Provider [phone] Reason for Visit * Reason Comments Med Refill Encounter Details Date Type Department Care Team (Late st Contact Info) Description 03/15/2022 Refill [facility] [address] [place] [address] Xiao Yusuf, PT ESCORT Women's annual routine gynecological examination Social History [...] Telephone Encounter - Christin Hinojosa MA - 03/15/2022 12:27 PM EST Patient needs toschedule annual appt not seen since 2020 documented in this encounter Plan of Treatment Not on file documented as of this encounter Visit Diagnoses Diagnosis Women's annual routine gynecological examination documented in this encounter Care Teams Quality Inspector Relationship Specialty Start Date End Date Juan Carlos Fernandes MD PCP - General Emergency Medicine 01/03/21 documented as of this encounter
--- OUTSIDE RECORDS SUMMARY | 2024-09-04 16:10 | XMS_ITS | Encounter Summary ---
Author Organization [facility] Address [address] [place] [address] Care Team Providers Care New Product Trainer Name Role Phone Juan Carlos Fernandes MD Primary Care Provider [phone] Reason for Visit * Reason Comments Med Refill Encounter Details Date Type Department Care Team (Late st Contact Info) Description 08/03/2024 Refill [facility] [address] [phone] Kristian Mejia MD [address] [place] [address] Social History Tobacco Use Types Packs/Day Years [...] on filedocumented in this encounter Care Teams New Product Trainer Relationship Specialty Start Date End Date Juan Carlos Fernandes MD PCP - General Emergency Medicine 01/03/21 documented as of this encounter
--- OUTSIDE RECORDS SUMMARY | 2024-09-04 16:10 | XMS_ITS | Encounter Summary ---
Author Organization [facility] Address [address] [place] [address] Care Team Providers Care Motor Grader Operator Name Role Phone Cecy Hale MD Primary Care Provider [phone] Encounter Details Date Type Department Care Team (Late st Contact Info) Description 08/06/2024 Telephone [facility] Urology [address] [place] [address] Griselda Thakkar [place] [id number] Social History Tobacco Use Types Packs/Day Years Used Date Smoking Tobacco: Former Comments Unknown Sex and Gender Information Value Date Recorded Sex Assigned at Not on file Legal Sex Female 6:14 PM EDT Gender Identity Not on file Sexual Orientation Not on file documented as of this encounter Miscellaneous Notes * Telephone Encounter - Griselda Thakkar - 08/06/2024 3:21 PM EDT Patient in on urology referral triage, called patient to schedule consult appointment, no answer, left a detailed message to return my call. Griselda Thakkar Rn documented in this encounter Plan of Treatment Upcoming Encounters Date Type Department Care Team (Late st Contact Info) Description 11/26/2024 8:00 AM EDT Consult [facility] Urology [address] [place] [address] Madhavi Juares, GRAVES REGISTRATION SPECIALIST [address] [place] [address] documented as of this encounter Visit Diagnoses Not on filedocumented in this encounter Care Teams Motor Grader Operator Relationship Specialty Start Date End Date Cecy Hale MD PCP - General 06/23/20 documented as of this encounter
[2024-09-04 17:23] LABS: Albumin Level 4.1 g/dl (3.5-5.0); Chloride 94 mmol/L (98-107); Potassium 4.0 mmoL/L (3.5-5.1); Sodium 132 mmol/L (136-145)
[2024-09-04 17:26] LABS: Alanine Aminotransferase 52 U/L (12-78); Albumin/Globulin Ratio 1.9 (1.1-1.8); Alkaline Phosphatase 96 U/L (38-126); Anion Gap 12.0 mEq/L (5-15); Aspartate Amino Transferase 33 U/L (14-36); Bilirubin,Total 0.4 mg/dl (0.2-1.3); Blood Urea Nitrogen 15 mg/dl (7-17); Calcium 10.1 mg/dl (8.4-10.2); Carbon Dioxide 30 mmol/L (22.0-30.0); Creatinine,Serum 0.70 mg/dl (0.52-1.04); Estimated Glomerular Filt Rate 86 ml/min (>60); GFR (African American) 104 ML/MIN (>60); Globulin 2.2 g/dL (1.3-3.2); Glucose 209 mg/dl (74-100); Total Protein,Serum 6.3 g/dl (6.3-8.2)
== END 2024-09-04 23:59 | disposition home or self-care (01) ==
LOC: LAB 16:09
PROVIDERS: PCP Nurse Practitioner Family; Visit Provider Obstetrics & Gynecology
DX: N95.1 Menopausal and female climacteric states (principal)
CPT/HCPCS: 36415; 80053

== ENCOUNTER 2024-09-13 16:20 | Outpatient (CLI) | payer BC, SELFPAY ==
--- OUTSIDE RECORDS SUMMARY | 2024-09-02 10:00 | XMS_ITS | Encounter Summary ---
Author Organization [facility] Address [address] [place] [address] Care Team Providers Care Car Inspection And Repair Manager Name Role Phone Juan Carlos Fernandes MD Primary Care Provider [phone] Encounter Details Date Type Department Care Team (Late st Contact Info) Description 09/02/2024 10:00 AM EDT Telemedicine [facility] PAIN MANAGEMENT [address] [phone] Kristian Mejia MD [address] [place] [address] Herniation of cervical intervertebral disc with radiculopathy; [...] Consult via telemedicine Mode of transmission: Audiovisual [place] [employer] 2-way interactive A/V telecommunication You have chosen [...] Location of Physician: Hospital Office Patient location: [place], [place] Photo Checker And Assembler/intake: JOSELUIS Oliveira Chief Complaint: I did great [...] 1 I can do most of the assistant counsel (tidying up, washing dishes, etc) despite the [...] Referral to Smoking Cessation Program: Quit now [place]: Enroll at www.[email or web address] or call 3-392-PCUFNOW ([phone]). The program provides a holistic approach to [...] to technical difficulties with patient's connection to [employer] Please note that portions of this note [...] smoker documented in this encounter Care Teams Car Inspection And Repair Manager Relationship Specialty Start Date End Date Juan Carlos Fernandes MD PCP - General Emergency Medicine 01/03/21 documented as of this encounter
--- NOTE | 2024-09-13 16:15 | MM_ITS ---
PROCEDURE INFORMATION: Exam: MG Bilateral Screening 3D Mammography Exam date and time: 09/13/2024 4:28 PM Age: 59 years old Clinical indication: Screening. No family history of breast cancer. TECHNIQUE: Imaging protocol: Bilateral Screening tomosynthesis and 2D mammography including computer-aided detection (CAD) when performed. COMPARISON: MG MAMMO SCREENING DIGITAL TOMOSYNTHESIS BILATERAL W CAD 02/08/2021 9:52 AM FINDINGS: MAMMOGRAPHY: Breast composition: There are scattered areas of fibroglandular density. Mass: Question 0.8 cm oval mass right upper outer quadrant, posterior 3rd, 8-11 cm from the nipple, CC brain 30 and MLO frame 23 Question 1.0 cm oval mass left central breast, possibly 12 o'clock, middle to posterior 3rd, 5-8 cm from the nipple better seen CC frame 26 than MLO frame 22. Architectural distortion: None. Calcifications: No suspicious calcifications. Asymmetric density: None. Skin thickening: None. Axillary adenopathy: None. IMPRESSION: Patient will be recalled for bilateral diagnostic mammography with spot compression and CC and MLO and bilateral sonography for further evaluation of a questionable masses. ASSESSMENT: BI-RADS Category 0: Incomplete: Need Additional Imaging Evaluation.
--- OUTSIDE RECORDS SUMMARY | 2024-09-13 16:23 | XMS_ITS | Encounter Summary ---
Author Organization [facility] Address [address] [place] [address] Care Team Providers Care Surveillance Systems Engineer Name Role Phone Juan Carlos Fernandes MD Primary Care Provider [phone] Reason for Visit * Reason Comments Med Refill Encounter Details Date Type Department Care Team (Late st Contact Info) Description 08/03/2024 Refill [facility]EMENT [address] [phone] Kristian Mejia MD [address] [place] [address] Social History Tobacco Use Types Packs/Day Years [...] on filedocumented in this encounter Care Teams Surveillance Systems Engineer Relationship Specialty Start Date End Date Juan Carlos Fernandes MD PCP - General Emergency Medicine 01/03/21 documented as of this encounter
--- OUTSIDE RECORDS SUMMARY | 2024-09-13 16:23 | XMS_ITS | Encounter Summary ---
[facility] Organization [facility] Address [address] [place] [address] Care Team Providers Care Preschool Paraprofessional Name Role Phone Juan Carlos Fernandes MD Primary Care Provider [phone] Reason for Visit * Reason Comments Med Refill Encounter Details Date Type Department Care Team (Late st Contact Info) Description 03/15/2022 Refill [facility] O[facility] [address] [place] [address] Xiao Yusuf, MEDICAL TECHNOLOGIST CHEMISTRY Women's annual routine gynecological examination Social History [...] examination documented in this encounter Care Teams Preschool Paraprofessional Relationship Specialty Start Date End Date Juan Carlos Fernandes MD PCP - General Emergency Medicine 01/03/21 documented as of this encounter
--- OUTSIDE RECORDS SUMMARY | 2024-09-13 16:23 | XMS_ITS | Encounter Summary ---
[facility] Organization [facility] Address [address] [place] [address] Care Team Providers Care Biodiesel Operations Manager Name Role Phone Juan Carlos Fernandes MD Primary Care Provider [phone] Reason for Visit * Reason Comments Med Refill Encounter Details Date Type Department Care Team (Late st Contact Info) Description 02/19/2022 Refill [facility]YN [address] [place] [address] Xiao Yusuf, BUTCHER MEAT Women's annual routine gynecological examination Social History [...] examination documented in this encounter Care Teams Biodiesel Operations Manager Relationship Specialty Start Date End Date Juan Carlos Fernandes MD PCP - General Emergency Medicine 01/03/21 documented as of this encounter
--- OUTSIDE RECORDS SUMMARY | 2024-09-13 16:23 | XMS_ITS | Clinical Summary ---
Author Organization [facility] Address [address] [place] [address] Care Team Providers Care Welding Tester Name Role Phone Juan Carlos Fernandes MD Primary Care Provider [phone] Allergies No known active allergies Medications losartan [...] Team Description 09/02/2024 10:00 AM EDT Telemedicine [facility] PAIN MANAGEMENT [address] [facility] [address] [place] [phone] Kristian Mejia MD Herniation of cervical intervertebral disc with radiculopathy; Spinal stenosis of cervical region with radiculopathy; Cervical spondylosis without myelopathy; Anxiety and depression; Current every day smoker 08/03/[address] [facility]IN [facility]EMENT [address] [facility] [address] [place] [address] Kristian Mejia MD 07/09/[address] [facility]IN [facility]EMENT [address] [facility] [address] [place] [address] Kristian Mejia MD 06/30/[address] [facility]IN [facility]EMENT [address] [facility] [address] [place] [address] Roxanne Lovett MA from Last [...] depth left breast. us Xiao Yusuf APRN [facility] MAMMOGRAPHY ORDERABLES Final Result * PAP SMEAR SCANNED (12/14/2020) us Xiao Yusuf APRN CHART REVIEW TABS Final Result [facility]
[address] [place] [address], [place] [phone] from Last 3 Months or Most Recently Relevant to Health Maintenance Insurance MEDICAID PENDING on file [facility] [facility] EMPLOYEE Care Teams Welding Tester Relationship Specialty Start Date End Date Juan Carlos Fernandes MD PCP - General Emergency Medicine 01/03/21
--- OUTSIDE RECORDS SUMMARY | 2024-09-13 16:23 | XMS_ITS | Clinical Summary ---
Author Organization [facility] Address [address] [place] [address] Care Team Providers Care Hebrew Teacher Name Role Phone Cecy Hale MD Primary Care Provider [phone] Encounters Date Type Department Care Team Description 08/06/[address] [facility] Urology [address] [place] [address] Griselda Thakkar from Last 3 [...] Info) Description 11/26/2024 8:[address] [facility]rology [address] [place] [address] Madhavi Juares, FINANCIAL MANAGEMENT CONSULTANT [address] [place] [address] Health Maintenance Due Date Last Done Comments [facility]-Depression Screening 1965 [facility]-HIV Screening 1965 [facility]-Hepatitis C Screening 1965 [facility]-Infant/Child/Adol SDOH Screenings 1965 [facility]- SDOH Screenings 07/09/1983 [facility]-Adult SDOH Screenings 07/09/1983 [facility]-DTaP,Tdap,and Td Vaccines (1 - Tdap) 1984 [facility]-Hepatitis B Vaccines (1 of 3 - 19+ 3-dose series) 1984 [facility]-Pap Smear 1986 [facility]-Cervical Cancer Screening 07/09/1995 [facility]-HPV/Cotest 07/09/1995 CT Colonography 2010 Colonoscopy 2010 FIT-DNA 2010 FIT 2010 FOBT 2010 Sigmoidoscopy 2010 [facility]-Colorectal Cancer Screening 2010 [facility]-Breast Cancer Screening 07/09/2015 [facility]-Pneumococcal Vaccine: 50+ Years (1 of 1 - PCV) 07/09/2015 [facility]-Zoster Vaccines (1 of 2) 07/09/2015 [facility]-Influenza Vaccine (#1) 10/11/202411/20, 11/30/2019, 11/09/2018, Additional history exists [id number] Vaccine Completed 11/21/2023, 12/29/2020, 04/01/2020, Additional history [...] patient's age to complete this topic Insurance [employer] Care Teams Hebrew Teacher Relationship Specialty Start Date End Date Cecy Hale MD PCP - General 06/23/20
--- OUTSIDE RECORDS SUMMARY | 2024-09-13 16:23 | XMS_ITS | Encounter Summary ---
Author Organization [facility] Address [address] [place] [address] Care Team Providers Care Clinical Advisor Name Role Phone Cecy Hale MD Primary Care Provider [phone] Encounter Details Date Type Department Care Team (Late st Contact Info) Description 08/06/2024 Telephone [facility] Urology [address] [place] [address] [place] [address] Social History Tobacco Use Types Packs/Day Years [...] Info) Description 11/26/2024 8:00 AM EDT Consult [facility]rology [address] [place] [address] Madhavi Juares, SENIOR NETWORK SECURITY ENGINEER [address] [place] [address] documented as of this encounter Visit Diagnoses Not on filedocumented in this encounter Care Teams Clinical Advisor Relationship Specialty Start Date End Date Cecy Hale MD PCP - General 06/23/20 documented as of this encounter
== END 2024-09-13 23:59 | disposition home or self-care (01) ==
LOC: RAD 16:22
PROVIDERS: PCP Nurse Practitioner Family; Referring Provider Obstetrics & Gynecology; Visit Provider Obstetrics & Gynecology
DX: Z12.31 Encounter for screening mammogram for malignant neoplasm of breast (principal); R92.323 Mammographic fibroglandular density, bilateral breasts; R92.8 Other abnormal and inconclusive findings on diagnostic imaging of breast
CPT/HCPCS: 77063; 77067

== ENCOUNTER 2024-10-22 14:10 | Outpatient (CLI) | payer BC, SELFPAY ==
--- OUTSIDE RECORDS SUMMARY | 2024-09-02 10:00 | XMS_ITS | Encounter Summary ---
Author Organization [facility] Address [address] [place] [address] Care Team Providers Care Real Estate Inspector Name Role Phone Juan Carlos Fernandes MD Primary Care Provider [phone] Encounter Details Date Type Department Care Team (Late st Contact Info) Description 09/02/2024 10:00 AM EDT Telemedicine [facility] PAIN MANAGEMENT [address] [phone] Kristian Mejia MD [address] [place] [address] Herniation of cervical intervertebral disc with radiculopathy; [...] Consult via telemedicine Mode of transmission: Audiovisual Soundwavet 2-way interactive A/V telecommunication You have chosen [...] Location of Physician: Hospital Office Patient location: [place], [place] Director Of Cardiology Service Line/intake: JOSELUIS Oliveira Chief Complaint: I did great [...] 1 I can do most of the rn gastroenterology (tidying up, washing dishes, etc) despite the [...] Referral to Smoking Cessation Program: Quit now [place]: Enroll at www.[email or web address] or call 3-725-DUSHNOW (212-9404). The program provides a holistic approach to [...] to technical difficulties with patient's connection to [employer] Please note that portions of this note [...] smoker documented in this encounter Care Teams Real Estate Inspector Relationship Specialty Start Date End Date Juan Carlos Fernandes MD PCP - General Emergency Medicine 01/03/21 documented as of this encounter
--- OUTSIDE RECORDS SUMMARY | 2024-10-22 14:13 | XMS_ITS | Encounter Summary ---
[facility] Address [address] [place] [address] Care Team Providers Care Director Of Assessing Name Role Phone Juan Carlos Fernandes MD Primary Care Provider [phone] Reason for Visit * Reason Comments Med Refill Encounter Details Date Type Department Care Team (Late st Contact Info) Description 03/15/2022 Refill [facility] [address] [place] [address] Xiao Yusuf, DEALER ACCOUNTS INVESTIGATOR Women's annual routine gynecological examination Social History [...] examination documented in this encounter Care Teams Director Of Assessing Relationship Specialty Start Date End Date Juan Carlos Fernandes MD PCP - General Emergency Medicine 01/03/21 documented as of this encounter
--- OUTSIDE RECORDS SUMMARY | 2024-10-22 14:13 | XMS_ITS | Clinical Summary ---
[facility] Address [address] [place] [address] Care Team Providers Care Kennel Assistant Name Role Phone Juan Carlos Fernandes MD Primary Care Provider [phone] Allergies No known active allergies Medications losartan (COZAAR) 25 MG tablet 3 Active citalopram (CeleXA) 20 MG tabletIndicatio ns:Anxiety Take 1 tablet by mouth Daily. 30 tablet 11 3 Active hydroCHLOROthia zide 25 MG tablet Take 1 tablet by mouth Daily. 4 Active cyclobenzaprine (FLEXERIL) 10 MG tablet Take 1 tablet by mouth 2 (Two) Times a Day As Needed. 4 Active ibuprofen (ADVIL,MOTRIN) 800 MG tablet Take 1 tablet by mouth Every 6 (Six) Hours As Needed. Active atorvastatin (LIPITOR) 20 MG tablet Take 1 tablet by mouth Daily. 5 Active Gel Base gel Use 2 g 4 (Four) Times a Day. prilocaine 2%, lidocaine 10%, imipramine 3%, capsaicin 0.001%, mannitol 20% cream, 240 g 5 5 Active estradiol (ESTRACE) 0.1 MG/GM vaginal cream using finger technique apply vaginally ONCE A DAY FOR 2 WEEKS THEN 3 times a WEEK thereafter 5 Active naproxen (NAPROSYN) 500 MG tablet Take 1 tablet by mouth Every 12 (Twelve) Hours. 5 Active nortriptyline (PAMELOR) 10 MG capsule 1-2 tablets QHS PRN 60 capsule 2 Active Active Problems Problem Noted Date Diagnosed Date [...] Encounters Date Type Department Care Team Description 10/05/2024 Telephone [facility] [address] [address] VASCELLO - F/U APPT 09/02/2024 10:00 AM EDT Telemedicine [facility] [address] [address] Kristian Mejia MD Herniation of cervical intervertebral disc with radiculopathy; Spinal stenosis of cervical region with radiculopathy; Cervical spondylosis without myelopathy; Anxiety and depression; Current every day smoker 08/03/2024 Refill [facility] [address] [address] Kristian Mejia MD from Last 3 Months Family History Medical History Relation Name Comments Diabetes Brother 1 Senthil Osteoarthritis Brother 1 Senthil Diabetes Brother 2 Keshav Anxiety disorder Daughter Zuleima Depression Daughter Zuleima Alcohol abuse Father My dad Cancer Father My dad Anxiety disorder Maternal Aunt Bembi Cancer Maternal Aunt Bembi Diabetes Maternal Grandmother Granny Hyperlipidemia Maternal Grandmother Granny Alcohol abuse Mother My mom Brain cancer [...] depth left breast. us Xiao Yusuf APRN IM MAMMOGRAPHY ORDERABLES Final Result * PAP SMEAR SCANNED (12/14/2020) us Xiao Yusuf APRN CHART REVIEW TABS Final Result [facility]
[address] [place] [address], from Last 3 Months or Most Recently Relevant to Health Maintenance Insurance MEDICAID PENDING on file [employer] Care Teams Kennel Assistant Relationship Specialty Start Date End Date Juan Carlos Fernandes MD PCP - General Emergency Medicine 01/03/21
--- OUTSIDE RECORDS SUMMARY | 2024-10-22 14:13 | XMS_ITS | Encounter Summary ---
[facility] Address [address] [place] [address] Care Team Providers Care Chicken Sexer Name Role Phone Juan Carlos Fernandes MD Primary Care Provider [phone] Reason for Visit * Reason Onset Date Comments DR ISAIAH Kenney/Shaheen APPT 10/05/2024 Encounter Details Date Type Department Care Team (Late st Contact Info) Description 10/05/2024 Telephone [facility] [address] [address] Kristian Colon MD [address] [place] [address] DR ISAIAH Kenney/Shaheen APPT Social History Tobacco Use Types Packs/Day Years [...] encounter Miscellaneous Notes * Telephone Encounter - Andriy Ghanshyam Padilla Rep - 10/05/2024 12:37 PM EDT Hub staff attempted to follow warm transfer process and was unsuccessful Caller: Tari Guillen Relationship to patient: Self Best call back number: [phone] Patient is needing: F/U APPT W/DR COLON documented in this encounter Plan of Treatment Not on file documented as of this encounter Visit Diagnoses Not on filedocumented in this encounter Care Teams Chicken Sexer Relationship Specialty Start Date End Date Juan Carlos Fernandes MD PCP - General Emergency Medicine 01/03/21 documented as of this encounter
--- OUTSIDE RECORDS SUMMARY | 2024-10-22 14:13 | XMS_ITS | Clinical Summary ---
Author Organization [facility] Address [address] [place] [address] Care Team Providers Care Forest Products Gatherer Name Role Phone Cecy Hale MD Primary Care Provider [phone] Encounters Date Type Department Care Team Description 08/06/2024 Telephone [facility] [address] [place] [address] Griselda Thakkar from Last 3 [...] Info) Description 11/26/2024 8:00 AM EDT Consult [facility] [address] [place] [address] Madhavi Juares, PRESSURE TESTING TECHNICIAN [address] [place] [address] Health Maintenance Due Date Last Done Comments [facility]Depression Screening 1965 [facility]-HIV Screening 1965 [facility]Hepatitis C Screening 1965 [facility]-/Child/Adol SDOH Screenings 1965 [facility]- SDOH Screenings 07/09/1983 [...] (#1) 10/11/202411/20, 11/30/2019, 11/09/2018, Additional history exists [id number] Vaccine Completed 11/21/2023, 12/29/2020, 04/01/2020, Additional history [...] complete this topic Insurance [employer] Care Teams Forest Products Gatherer Relationship Specialty Start Date End Date Cecy Hale MD PCP - General 06/23/20
--- OUTSIDE RECORDS SUMMARY | 2024-10-22 14:13 | XMS_ITS | Encounter Summary ---
[facility] [address] [place] [address] Care Team Providers Care Photography Assistant Name Role Phone Juan Carlos Fernandes MD Primary Care Provider [phone] Reason for Visit * Reason Comments Med Refill Encounter Details Date Type Department Care Team (Late st Contact Info) Description 02/19/2022 Refill [facility] [address] [place] [address] Xiao Yusuf, SALON PROFESSIONAL Women's annual routine gynecological examination Social History [...] examination documented in this encounter Care Teams Photography Assistant Relationship Specialty Start Date End Date Juan Carlos Fernandes MD PCP - General Emergency Medicine 01/03/21 documented as of this encounter
--- NOTE | 2024-10-22 14:45 | MM_ITS ---
PROCEDURE INFORMATION: Exam: US Right Breast, Complete US Left Breast, Complete MG Bilateral Diagnostic Breast Tomosynthesis Exam date and time: 10/22/2024 2:45 PM Age: 59 years old Clinical indication: Patient recalled for further evaluation of bilateral breast masses TECHNIQUE: Imaging protocol: Complete ultrasound of all four quadrants of the right breast and the retroareolar regions, including ultrasound of the axilla when performed. Complete ultrasound of all four quadrants of the left breast and the retroareolar regions, including ultrasound of the axilla when performed. Bilateral Diagnostic tomosynthesis and 2D mammography including computer-aided detection (CAD) when performed. Unilateral or bilateral exam. COMPARISON: MG MM DIG MAMM BI DX W/CAD 10/22/2024 2:06 PM FINDINGS: MAMMOGRAPHY: Breast composition: There are scattered areas of fibroglandular density. Breast mammogram findings: Digital diagnostic spot compression views of the right breast and 90 degree lateral view of the right breast demonstrate normal overlapping fibroglandular structures without persistent mass or asymmetry identified. Digital diagnostic spot compression views of the left breast and 90 degree lateral view of the left breast demonstrate a persistent 0.6 cm round mass in the posterior third of the left central breast. ULTRASOUND: Breast ultrasound findings: Sonographic images of both breasts including the retroareolar regions, all 4 quadrants and the axilla do not demonstrate any solid masses. Minimal subcentimeter cystic change is present in the left breast including a 0.6 cm cyst in the 2 o'clock axis 6 cm from the nipple possibly correlating with the mass on mammography. No architectural distortion or acoustical shadowing. No skin thickening or axillary adenopathy. IMPRESSION: Subcentimeter mass in the left central breast on mammography likely correlates with underlying cystic change sonographically. A precautionary six-month follow-up diagnostic left mammogram is recommended to ensure stability over time ASSESSMENT: BI-RADS Category 3: Probably benign.
== END 2024-10-22 23:59 | disposition home or self-care (01) ==
PROVIDERS: PCP Family Medicine; Visit Provider Obstetrics & Gynecology
DX: N63.21 Unspecified lump in the left breast, upper outer quadrant (principal); R92.323 Mammographic fibroglandular density, bilateral breasts
CPT/HCPCS: 76641; 77062; 77066; G0279

== ENCOUNTER 2024-12-24 08:19 | Outpatient (CLI) | payer BC, SELFPAY ==
[2024-12-24 20:46] LABS: Coronavirus 19, PCR Not Detected (NotDetected); Influenza A, PCR Not Detected (NotDetected); Influenza B, PCR Not Detected (NotDetected)
--- OUTSIDE RECORDS SUMMARY | 2024-12-25 08:22 | XMS_ITS | Clinical Summary ---
Author Organization [facility] Address [facility] [place] [id number] Care Team Providers Care Scraper Burrer Name Role Phone Cecy Hale MD Primary Care Provider [phone] Family History Medical History Relation Name Comments [...] 02/24/2019 9:49 AM EST Plan of Treatment Health Maintenance Due Date Last Done Comments [facility] Scre[facility] 1965 [facility]/Child/Adol SDOH Screenings 1965 [facility]- [...] (#1) 10/11/202411/20, 11/30/2019, 11/09/2018, Additional history exists [id number] Vaccine Completed 11/21/2023, 12/29/2020, 04/01/2020, Additional history [...] patient's age to complete this topic Insurance ASHLY Care Teams Scraper Burrer Relationship Specialty Start Date End Date Cecy Hale MD PCP - General 06/23/20
== END 2024-12-24 23:59 | disposition home or self-care (01) ==
LOC: LAB.DROPOF 12-25 08:20
PROVIDERS: PCP Nurse Practitioner Family; Visit Provider Student in an Organized Health Care Education/Training Program
DX: J02.9 Acute pharyngitis, unspecified (principal); R50.9 Fever, unspecified
CPT/HCPCS: 87636

== ENCOUNTER 2025-01-21 11:42 | Outpatient (CLI) | payer BC, SELFPAY ==
[2025-01-21 08:41] VITALS: BMI 30.5
--- NOTE | 2025-01-21 11:45 | ECG_ITS ---
APPROVED REPORT Exam: Resting ECG HR:85 bpm ECG Measurements Heart Rate 85 AXES MA 138 P 63 QRSd 104 QRS 27 QT 396 T 47 QTc 438 Conclusion SINUS RHYTHM PROBABLE INFERIOR MYOCARDIAL INFARCTION , PROBABLY OLD [35 ms Q WAVE IN II/aVF] ABNORMAL ECG UNCONFIRMED REPORT Electronically signed by : Rigo Cheng MD 01/23/2025 20:31:08
[2025-01-21 12:18] LABS: Hematocrit 43.2 % (37.0-47.0); Hemoglobin 14.6 g/dL (12.2-16.2); Immature Granulocytes % 0.1 %; Mean Corpuscular HGB Conc 33.8 g/dL (31.8-35.4); Mean Corpuscular Hemoglobin 27.9 pg (27.0-31.2); Mean Corpuscular Volume 82.6 fl (81-99); Nucleated Red Blood Cells % 0 %; Platelet Count 356 K/mm3 (142-424); Red Blood Count 5.23 M/mm3 (4.20-5.40); Red Cell Distribution Width-SD 41.5 fL; White Blood Count 7.8 K/mm3 (4.8-10.8)
[2025-01-21 12:31] LABS: Chloride 99 mmol/L (98-107)
[2025-01-21 12:32] LABS: Potassium 3.7 mmoL/L (3.5-5.1); Sodium 140 mmol/L (136-145)
[2025-01-21 12:34] LABS: Alanine Aminotransferase 28 U/L (12-78); Aspartate Amino Transferase 24 U/L (14-36); Bilirubin,Total 0.3 mg/dl (0.2-1.3); Blood Urea Nitrogen 20 mg/dl (7-17); Creatinine Clearance Estimated 100 mL/min (50-200); Creatinine,Serum 0.90 mg/dl (0.52-1.04); Estimated Glomerular Filt Rate 64 ml/min (>60); GFR (African American) 78 ML/MIN (>60)
[2025-01-21 12:35] LABS: Alkaline Phosphatase 78 U/L (38-126); Calcium 9.0 mg/dl (8.4-10.2); Glucose 110 mg/dl (74-100); Total Protein,Serum 7.4 g/dl (6.3-8.2)
[2025-01-21 16:04] LABS: Albumin Level 4.5 g/dl (3.5-5.0); Albumin/Globulin Ratio 1.6 (1.1-1.8); Anion Gap 15.7 mEq/L (5-15); Carbon Dioxide 29 mmol/L (22.0-30.0); Globulin 2.9 g/dL (1.3-3.2)
== END 2025-01-21 23:59 | disposition home or self-care (01) ==
LOC: PREOP 11:43
PROVIDERS: PCP Nurse Practitioner Family; Visit Provider Obstetrics & Gynecology
DX: Z01.810 Encounter for preprocedural cardiovascular examination (principal); Z01.812 Encounter for preprocedural laboratory examination; R94.31 Abnormal electrocardiogram [ECG] [EKG]; R32 Unspecified urinary incontinence
CPT/HCPCS: 80053; 84702; 85025; 93005

== ENCOUNTER 2025-01-27 07:00 | Day surgery (SDC) | payer BC, SELFPAY ==
[2025-01-25 07:00] VITALS: BMI 30.5
[2025-01-27] VITALS (11 sets, daily range): BP systolic 108–147; BP diastolic 58–84; PULSE 81–89; RESP 16–24; TEMP 36.2–43; O2SAT 93–100
[2025-01-27] MEDS: CELECOXIB 100MG CAPSULE 400 MG PO (07:26)
[2025-01-27] MEDS: ACETAMINOPHEN 500MG TAB 1000 MG PO (07:27)
[2025-01-27] MEDS: LACTATED RINGERS 1000ML 1,000 ML 25 ML IV (07:28)
--- NOTE | 2025-01-27 07:43 | EXP.ANES.CKL ---
[facility] Disclaimer: The information contained in this section may have been updated after the patient was seen, as this information can be updated by other users. 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 Breast cancer screening by mammogram Encounter for routine gynecological examination Cervical disc disease Abnormal findings on diagnostic imaging of cardiovascular system Tobacco use Radiculopathy affecting upper extremity Neck pain Anxiety Surgical History History of bunionectomy History of tubal ligation History of section History of cholecystectomy Family History (Updated 01/21/25 @ 11:53 by Peter Loya RN) Mother Cancer Father Cancer Other Family history of diabetes mellitus Family history of hypertension Social History (Updated 01/21/25 @ 11:53 by Peter Loya RN) Smoking Status: Current every day smoker tobacco type: cigarettes packs per day: 1 alcohol intake: never substance use type: denies use current occupational status: employed Travel in the last 8 weeks?: None household members: spouse housing: house current occupation: [employer] Have you lived/traveled outside in past 30 days?: No Contact w/someone who lives/traveled outside [place] past 30 days?: No Exposure to someone with infectious disease in past 14 days?: No Do you have a fever (greater than 100.4 F or 38 C)?: No Have you tested positive for COVID-19?: No Exposed to someone with COVID-19 in past 14 days?: No Do you have a sore throat?: No Do you have a cough?: No Do you have any weakness?: No Do you have any diarrhea?: No Are you experiencing any unusual bleeding?: No Do you have any muscle aches/pain?: No Do you have any abdominal pain?: No Are you experiencing loss of taste or smell?: No [facility] Anesthesia Checklist Patient Identification Patient Identification: Arm Band and Family Structural Data Admitted From: Home Planned Operative Procedure/s: Transvaginal Taping Consent for Planned Operative Procedure(s) Verified: Yes Verified Documents: Surgical Consent and History and Physical NPO Status Verified Time NPO: 00:00 Additional verifications Patient : No Anesthesia Reactions: No Hx Blood Transfusions: Yes Blood Transfusion Reaction: No Cephalosporin Allergy: No Previous Colonoscopy: Yes Airway Assessment Mallampati Score:: Class II C-Spine Mobility Assessed: Yes TMJ Mobility Assessed: Yes Dentition: Good Dentition Neurological Assessment Level of Consciousness: Awake, Alert, Appropriate and Follows Commands Hx Seizures: No Numbness or tingling in extremities: No Anesthesia Plan Anesthesia Risk discussed: Yes ASA Class: II Anesthesia Type: General
[2025-01-27] MEDS: LIDOCAINE 1% W/EPI 1:100,000 20ML VIAL 20 ML (09:17)
--- NOTE | 2025-01-27 10:09 | P.PNANES_ITS ---
[facility] Anesthesia Record Part I Anesthesia Record I Intake, IV Amount: 850 Hydration: Adequate Estimated blood loss (mL): 3 Urine output (mL): 0 Blood Products used (#): none Blood Pressure: 147/84 SaO2: 94 Pulse Rate: 89 Airway Patency: Patent Respiratory Rate: 24 Temperature: 97.1 F Patient is:: Drowsy and Stable Stable to PACU at:: 10:00
--- NOTE | 2025-01-27 10:18 | P.OP_ITS ---
Date of procedure: 01/27/25 Pre-op Diagnosis:: Stress urinary incontinence Post-op Diagnosis:: Stress urinary incontinence Procedure performed:: Tension-free retropubic mid urethral sling Surgeon:: Gladys Boyce DO Mandrel Press Hand(s):: Chet Barker MD PHOTOENGRAVING ETCHER:: Kali Dunlap Anesthesia: GETA Estimated blood loss (mL): 100 Clinical Note:: Tari Guillen is a 59-year-old presenting today for surgical management of stress urinary incontinence. The patient was counseled on the risks, benefits, and alternatives to a mid-urethral sling, including but not limited to infection, urinary retention, mesh erosion, bleeding, injury to surrounding structures specifically including the bladder, urethra, and surrounding vasculature, voiding dysfunction, and unforeseen complications. Discussed risks of bladder perforation. Consent was preoperatively signed. Operative findings:: 1. Normal external genitalia. Normal appearing cervix. Mobile and mid-position urethra palpated. 2. On cystourethroscopy, a full survey of the bladder was performed after passage of each trocars, demonstrating no evidence of trocar perforation on the patients right. Perforation noted on patients left, trocar removed and replaced. No evidence of other injury, trauma bleeding, or lesions. Brisk bilateral reflux of clear urine was visualized from the ureteral orifices. The urethra was intact without evidence of injury. Operative note:: The patient was taken to the operating room where anesthesia was induced. Preoperative antibiotics were given of 2g IV Ancef. IV access was patent. The patient was positioned in standard dorsal lithotomy using stirrups, taking care to avoid hyperextension and flexion of the joints, as well as pad any pressure points. The patient was prepped and draped in the sterile fashion. A time-out was performed. A Latex-free Minor was placed into the bladder. The suprapubic area was marked for the site of the future trocar passes, approximately 2 cm lateral to the midline. This area was hydrodistended with Neurontin 20 mL and each site. An Allis clamp was placed 1 cm proximal to the urethral meatus and another at the level of the urethrovesical junction along the midline. The mid-urethra was palpated. Local anesthetic with epinephrine was injected in the suburethral and bilaterally in the periurethral space. A vert ical incision was then made in the vaginal epithelium at the level of the mid urethra. The vaginal epithelium was dissected off the underlying fascia with Metzenbaum scissors. Allis clamps were used for traction and Metzenbaum scissors were used to dissect the periurethral tunnel to the level of the inferior pubic ramus. This was repeated on the contralateral side. The bladder was confirmed to be empty. The rigid urethral catheter guide was placed in the bladder neck, deviating the bladder to the patient's left, with the trocar being passed on the patient's right. The [facility] advantage transvaginal tape trocar was placed in the previously dissected periurethral tunnel and passed retropubically, hugging the back of the pubic bone, and exiting through the suprapubic skin site. The vaginal epithelium was then inspected and no perforation was seen. Minor was removed and a cystoscopy performed. A full survey of the bladder was performed, demonstrating no evidence of trocar perfor ation, other injury, bleeding, or lesions. Brisk bilateral efflux of clear urine was visualized from the ureteral orifices. The urethra was intact without evidence of injury. The cystoscope was removed, and the bladder drained. Passage of the trocar was then repeated on the patient's left side, this time with the bladder deviated to the right with the rigid urethral catheter guide. The vaginal epithelium was inspected and no perforation was seen. The Minor was removed and a cystoscopy performed. A full survey of the bladder was performed again, demonstrating evidence of trocar perforation. Brisk bilateral efflux of clear urine was visualized from the ureteral orifices. The urethra was intact without evidence of injury. The cystoscope was removed, and the bladder drained. Trocar was removed and replaced and cystoscopy repeated without evidence bladder perforation. The mesh was pulled to a tension free position in the mid urethra. An Allis was used to lauren 1 cm in the midline to ensure that the mesh was not too tight/restrictive. The plastic sheaths were removed. A repeat vaginal exam confirmed that there were no vaginal perforations with the mesh. Curved Lamb scissors were used to ensure tension-free mesh placement in the midline, setting the sling in place. Excess mesh was removed suprapubically and these sites are closed with Dermabond. The suburethral incision was closed with 2-0 Vicryl matress sutures, taking care to not incorporate the mesh into the closure. Hemostasis was excellent. The counts were correct. The patient tolerated the procedure well. She was brought to the recovery room in stable condition. She will be discharged after meeting all discharge criteria to include voiding independently with a normal PVR. Condition: stable Disposition: same day Specimens:: None Complications:: Bladder perforation, trocar removed and replaced without problem, hemostatsis noted.
--- NOTE | 2025-01-27 15:43 | EXP.ANES.II ---
[facility] Anesthesia Record Part II Anesthesia Record Part II Discharge Time: 11:10 Destination: Surgical Day Care (OP Surgery) PACU nurse assessment reviewed?: Yes Patient Condition:: Good Anesthesia Complications:: None Swallowing reflex intact?: Yes Airway Patency: Patent Cyanosis?: No Blood Pressure: 111/59 SaO2: 93 Respiratory Rate: 17 Pulse Rate: 81 Temperature: 97.2 F Mental Status: Alert & Oriented Pain level:: 0 Nausea and/or vomitting:: None Intake, IV Amount: 0 Hydration: Adequate
[2025-01-28 06:59] LABS: POC Glucose,Bedside 126 gm/dL (70-110)
== END 2025-01-27 12:31 | disposition home or self-care (01) ==
PROVIDERS: PCP Nurse Practitioner Family; Visit Provider Obstetrics & Gynecology
PROC: (CPT 57288; principal; 2025-01-27 08:30)
DX: N39.3 Stress incontinence (female) (male) (principal); F17.210 Nicotine dependence, cigarettes, uncomplicated; Z79.82 Long term (current) use of aspirin; Z90.49 Acquired absence of other specified parts of digestive tract; Z98.51 Tubal ligation status; E11.9 Type 2 diabetes mellitus without complications; Z79.84 Long term (current) use of oral hypoglycemic drugs
CPT/HCPCS: 57288; 82962; 96374; C1771; J0690; J1100; J2003; J2004; J2250; J2405; J2704; J2795; J3010; J7120

== ENCOUNTER 2025-02-09 11:00 | Outpatient (RCR) | payer BC, SELFPAY ==
--- NOTE | 2025-01-12 16:55 | HMH.PTOPEV ---
PT Evaluation Rehab PT Outpatient Evaluation Start: 01/12/25 16:02 Freq: Status: Active Protocol: Document 01/12/25 16:02 AAMIR (Rec: 01/12/25 16:55 AAMIR [id number]) E-signed By Candy Macdams, PT Outpatient Therapy Subjective History Subjective History Pt is a 59 y/o female referred to PT for low back pain. Pt reports chronic dull central low back pain for 4-5 years. Pt reports new onset of sharp intermittent bilateral posterior hip pain last summer. Pt states this sometimes extends to her knees and makes her feel like her leg will give way, denies falls. Pt denies numbness/tingling. Pt reports she got an injection in he low back last summer with temporary improvement in symptoms. Pt reports she had lumbar spine radiographs performed at the chiropractor at the beginning of the year and was told she has no goo. Pt denies known fractures. Pt reports pain seems to be worse in the morning and at the end of the day. Pt reports pain is also aggravated by prolonged standing, walking, and sitting in a hard chair. Pt reports difficulty sleeping due Pt reports pain improves with bending forward and resting. Pt reports she is getting a bladder sling placed due to chronic overactive bladder on 01/27/25. 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 Chief Complaint Pain Symptom Type Ache,Dull Symptoms Relieved By Rest/Positioning,OTC Meds Symptoms Aggravated Sitting,Standing,Physical Activity,Walking By Current Functional Sleeping,Standing Limitations Symptom Description Constant but Variable Level of pain today 3 (0-10) Pain scale - at its 3 best (0-10) Pain scale - at its 6 worst (0-10) Lumbopelvic Eval Posture Lumbar Spine Posture Increased Lordosis,Flexed Standing Position Palapation tenderness bilateral buttock tenderness Yes: L>R piriformis Lumbar/Sacral Tenderness Palpation Findings Lumbar/Sacral 2/4 TTP Palpation Overall Comment Accessory Movement L-spine Vertebrae Central P/A [place] Accessory Movements that Elicit Symptoms L2 bilateral L3 bilateral L4 bilateral Range of Motion Lumbar Spine Active 105 Flexion Range of Motion (degrees) Lumbar Spine Active 5 Extension Range of Motion (degrees) Left Lumbar Spine 5 Lateral Flexion Active Range of Motion (degrees) Right Lumbar Spine 5 Lateral Flexion Active Range of Motion (degrees) Manual Muscle Test Bilateral Knee Extension 5 Normal Strength Grade Knee Flexion 5 Normal Strength Grade Hip Flexion Strength 4 Good Grade Hip Abduction 4 Good Strength Grade Hip Adduction 4 Good Strength Grade Hip Extension 4- Good- Strength Grade Ankle Dorsiflexion 5 Normal Strength Grade DTR Rt Patellar 2+ Lt Patellar 2+ Altered Sensation Bilateral Comment equal and intact to light touch sensation bilaterally Special Tests Hip Jerald (KENNY) Negative Left,Negative Right Test Hip Piriformis Test Negative Left,Negative Right Sciatic Nerve Negative Left,Negative Right Tension Test Unilateral Straight Negative Left,Negative Right Leg Raise (Lasegue) Test Oswestry Index Section 1 Pain Intensity The pain comes and goes and is moderate Section 2 Personal Care ( increase the pain, but I manage not to change my way of Washing,Dresing) doing it Section 3 Lifting lifting heavy weights off the floor, but I can manage if they are Section 4 Walking I cannot walk more than 1/4 mile without increasing pain Section 5 Sitting Pain prevents me from sitting for more than 1/2 hour Section 6 Standing I cannot stand more than 10 minutes without increasing pain Section 7 Sleeping Because of my pain, my normal night's sleep is less than 6 hours sleep Section 8 Social Life Pain has no significant effect on my social life apart from limiting Section 9 Traveling I get extra pain while traveling, but it does not compel me to seek al Section 10 Changing Degreee of My pain is gradually getting worse Pain Score and Risk Level Oswestry Score 28 Oswestry Risk Level Severe Disability Miscellaneous Dx PT Eval Objective Objective Core strength: 4-/5 Outpatient Therapy Assessment Impairments Problems/ Palpation Tenderness,Impaired Range of Motion,Impaired Impairmments Strength,Impaired Walking,Impaired Standing,Impaired Sitting,Impaired Lifting,Impaired Work Activities, Subjective C/O Pain,Impaired Self Care/Self Management Prognosis Rehab Potential Good Clinical Impression Consistent with Yes Diagnosis PT Patient Goals PT Patient Goals PT Short Term 3 weeks: Patient Goals 1. Verbalize compliance with HEP to assist with progress. 2. Improve pain at worst to 4/10 on VAS to improve overall QOL/function. 3. Improve EDILBERTO score to 23 or less to improve overall QOL/function. PT Patient Monitor Patient 6 weeks: Goals 1. Improve lumbar extension and LF AROM to 10-15 to assist with mobility and function. 2. Improve hip/core strength to 4-4+/5 grossly to assist with function. 3. Improve pain at worst to 2/10 on VAS to improve overall QOL/function. 4. Improve EDILBERTO score to 18 or less to improve overall QOL/function. 5. Work a full shift with pain 2/10 or less. Outpatient Therapy Plan of Care Treatment Plan May Include Therapeutic Exercise Yes Including Home Exercise Program Manual Therapy Yes Techniques Neuromuscular Re- Yes education Therapeutic Yes Activities to Return to Previous Functional/Work Level ADL/Self Care Yes Education Mechanical Traction Yes Dry Needling Yes Thermal Modalities Yes Electrical Yes Stimulation Ultrasound/ Yes Phonophoresis Iontophoresis Yes Massage Yes Eval/Re-Eval Yes Frequency Times per week 2 Duration Number of Weeks 4-6 Addendums This patient is a No candidate for social or vocational rehab ? Patient/Guardian Yes verbally acknowledges understanding of treatment program and consents to further treatment? Patient/Guardian Yes verbally acknowledges understanding of diagnosis, prognosis and goals for treatment? Eval Complexity PT Charges 62307 - Low Complexity Shoulder/Elbow Eval Shoulder Objective Measurements Elbow Objective Measurements PHYSICIAN CERTIFICATION: I certify the specified therapy services for Tari Guillen are required, authorized, and reviewed every 30 days.
--- NOTE | 2025-02-09 11:43 | [facility].RHREAS ---
Rehab Reassessment Rehab OP Re-assessment Start: 01/12/25 16:02 Freq: Status: Active Protocol: Document 02/09/25 10:46 AAMIR (Rec: 02/09/25 11:43 AAMIR [id number]) E-signed By Candy Mcadams, PT Oswestry Index Section 1 Pain Intensity The pain comes and goes and is moderate Section 2 Personal Care ( my way of washing or dressing even though it causes Washing,Dresing) some pain Section 3 Lifting I can lift heavy weights, but it gives me extra pain Section 4 Walking I cannot walk more than 1/4 mile without increasing pain Section 5 Sitting Pain prevents me from sitting for more than 10 minutes Section 6 Standing I cannot stand more than 10 minutes without increasing pain Section 7 Sleeping Because of my pain, my normal night's sleep is less than 6 hours sleep Section 8 Social Life Pain has restricted my social life and I do not go out often Section 9 Traveling I get extra pain while traveling, but it does not compel me to seek al Section 10 Changing Degreee of My pain seems to be getting better, but improvement is Pain slow Score and Risk Level Oswestry Score 25 Oswestry Risk Level Severe Disability Rehab Re-assessment Subjective Subjective Pt reports 50% improved since starting PT. Pt reports continued low back pain rated 6/10 at worst aggravated by prolonged standing, sitting in a hard chair and short distance walking. Pt reports radiating pain into bilateral hips is improving occurring less often than before. Pt states this was occurring 4x/day and is now occurring only 1x/day if that. Pt reports compliance with HEP with good tolerance, states she has not been performing the bridges since getting a bladder sling on 01/27/25. Pt reports restrictions of no lifting >10lb for 6 weeks since the procedure. Pt reports she is scheduled to return to her doctor 6 weeks from starting PT to get a MRI, states she had to complete 6 weeks of PT first before this could be approved. Objective Objective Notes Palpation: / TTP of bilateral piriformis mm Lumbar AROM: ext 20, LL5 20, RLF 10 Assessment Assessment Notes Pt has only attended 3 PT treatment sessions since the evaluation although reports compliance with HEP. Pt demonstrated improved EDILBERTO score and lumbar AROM this date compared to the initial evaluation. Pt continues to report moderated low back pain with activities such as prolonged sitting, standing and walking although does report decreased frequency of radiating pain into her hips. Overall, the pt would continue to benefit from skilled PT to further improve subjective report of pain, lumbar AROM, core/hip strength and functional activity tolerance to improve overall QOL/function. PT Patient Goals PT Short Term 3 weeks: 02/12 Patient Goals 1. Verbalize compliance with HEP to assist with progress. -MET 2. Improve pain at worst to 4/10 on VAS to improve overall QOL/function. -NOT MET 3. Improve EDILBERTO score to 23 or less to improve overall QOL/function. 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 Improve lumbar extension and LF AROM to 10-15 to assist with mobility and function. 2. Improve hip/core strength to 4-4+/5 grossly to assist with function. 3. Improve pain at worst to 2/10 on VAS to improve overall QOL/function. 4. Improve EDILBERTO score to 18 or less to improve overall QOL/function. 5. Work a full shift with pain 2/10 or less. Plan Plan Continue initial POC Frequency of Therapy 2x/week Duration of Therapy 4 more weeks Therapeutic Exercise Yes Including Home Exercise Program Manual Therapy Yes Techniques Neuromuscular Re- Yes education Therapeutic Yes Activities to Return to Previous Functional/Work Level ADL/Self Care Yes Education Mechanical Traction Yes Dry Needling Yes Thermal Modalities Yes Electrical Yes Stimulation Ultrasound/ Yes Phonophoresis Iontophoresis Yes Massage Yes Eval/Re-Eval Yes Time and Billing Re-Eval Time 7 Re-Eval Billing 0 Units Charge for PT No reassessment? Charge for OT No reassessment? PHYSICIAN CERTIFICATION: I certify the specified therapy services for Tari Guillen are required, authorized, and reviewed every 30 days.
== END 2025-02-09 23:59 | disposition home or self-care (01) ==
LOC: PT 11:00
PROVIDERS: PCP Nurse Practitioner Family; Visit Provider Nurse Practitioner Family
DX: M54.50 Low back pain, unspecified (principal)
CPT/HCPCS: 97110; 97161